=== PATIENT | male | born 1985 | race Caucasian/White ===

== ENCOUNTER 2017-03-23 17:22 | Emergency (ER) | payer OTHER ==
[2017-03-23 17:37] VITALS: RESP 18
[2017-03-23] MEDS ORDERED: SODIUM CHLORIDE 0.9% 1,000 ML IV STA ×2 (18:29)
[2017-03-23] MEDS ORDERED: ONDANSETRON 4 MG/2 ML VIAL IVP STA (18:29)
[2017-03-23] MEDS ORDERED: SODIUM CHLORIDE 0.9% 500 ML IV STA (18:29)
[2017-03-23] MEDS ORDERED: PANTOPRAZOLE 40 MG/10 ML VIAL IVP STA (18:30)
[2017-03-23] MEDS ORDERED: RX INFO: IV CONTRAST WAS GIVEN 1 EACH MISC MISCELLANE PRN (18:32)
--- NOTE | 2017-03-23 18:36 | ED ---
General Adult HPI - General Source: patient, RN notes reviewed Mode of arrival: ambulatory Limitations: no limitations <Camron Vail - Last Filed: 03/23/17 18:33> <Alen Godoy - Last Filed: 03/23/17 22:27> - General Chief complaint: Nausea/Vomiting/Diarrhea Stated complaint: weakness x 3 days, vomiting Time Seen by Provider: 03/23/17 18:20 - History of Present Illness Initial comments: Patient 31-year-old male significant past medical history for colitis, who presents emergency room today with a chief complaint of symptoms of increased nausea vomiting diarrhea over the last 3 days. He denies any signs of blood in the emesis or stool. Patient states that it difficult time keeping down any fluids. Patient states she's had symptoms similar to this on and off over the last 4 years. He states that he has lost approximately 90 pounds over the last 2 years. He states he did stop eating bread and he stopped drinking beer patient admits to some abdominal pain that comes and goes. Patient denies any other complaints or symptoms at this time. Patient denies any recent fever, chills, shortness of breath, chest pain, back pain, numbness or tingling, dysuria or hematuria, constipation, headaches or visual changes, or any other complaints. (Camron Vail) - Related Data Previous Rx's Medication Instructions Recorded chlordiazePOXIDE HCl [Librium] 25 mg PO QID #20 capsule 03/23/17 Allergies Allergy/AdvReac Type Severity Reaction Status Date / Time No Known Allergies Allergy Verified 03/23/17 18:29 Review of Systems ROS Other: All systems not noted in ROS Statement are negative. <Camron Vail - Last Filed: 03/23/17 18:33> ROS Other: All systems not noted in ROS Statement are negative. <Alen Godoy - Last Filed: 03/23/17 22:27> ROS Statement: Those systems with pertinent positive or pertinent negative responses have been documented in the HPI. Past Medical History Additional Past Medical History / Comment(s): colitis History of Any Multi-Drug Resistant Organisms: None Reported Past Surgical History: No Surgical Hx Reported Past Psychological History: No Psychological Hx Reported Smoking Status: Never smoker Past Alcohol Use History: Daily, Heavy Past Drug Use History: Marijuana <Camron Vail - Last Filed: 03/23/17 18:33> General Exam Limitations: no limitations <Camron Vail - Last Filed: 03/23/17 18:33> <Alen Godoy - Last Filed: 03/23/17 22:27> - General Exam Comments Initial Comments: General: The patient is awake and alert, in no distress, and does not appear acutely ill. Eye: Pupils are equal, round and reactive to light, extra-ocular movements are intact. No nystagmus. There is normal conjunctiva bilaterally. No signs of icterus. Ears, nose, mouth and throat: There are moist mucous membranes and no oral lesions. Neck: The neck is supple, there is no tenderness or JVD. Cardiovascular: There is a regular rate and rhythm. No murmur, rub or gallop is appreciated. Respiratory: Lungs are clear to auscultation, respirations are non-labored, breath sounds are equal. No wheezes, stridor, rales, or rhonchi. Gastrointestinal: Normal appearance abdomen. Normal bowel sounds. Soft on palpation. Mild tenderness epigastric. No rebound tenderness. No Guarding. No CVA tenderness. Musculoskeletal: Normal ROM, no tenderness. Strength 5/5. Sensation intact. Pulses equal bilaterally 2+. Neurological: A&O x 3. CN II-XII intact, There are no obvious motor or sensory deficits. Coordination appears grossly intact. Speech is normal. Skin: Skin is warm and dry and no rashes or lesions are noted. Psychiatric: Cooperative, appropriate mood & affect, normal judgment. (Camron Vail) Medical Decision Making <Camron Vail - Last Filed: 03/23/17 18:33> - Lab Data Result diagrams: 03/23/17 19:00 03/23/17 19:00 <Alen Godoy - Last Filed: 03/23/17 22:27> - Medical Decision Making Medical decision-making. The patient'slabs show white count of 7 hemoglobin 13 hematocrit 37. Potassium 3.7 BUN 5 creatinine 0.7 GFR greater than 60. Glucose 109. Total bilirubin 2.5 AST 390 ALT 80 alk phos 189. Hepatitis panel is negative. CT of the abdomen was done for evaluation of nausea vomiting. This was performed without oral or IV contrast. The radiologist's significant depressions including the liver is diffusely hypoattenuated measuring greater than 30 hospital units lower than the spleen most commonly related to underlying hepatic steatosis, which limits evaluating for underlying hepatic masses. No focal hepatic lesion is visualized. The gallbladder contains numerous calcified layering gallstones. Pancreas no significant abnormality is seen. Spleen spleen is enlarged measuring 14.8 cm in greatest sagittal dimension. Small spinal seen adjacent to the names. No free air visualized. No retroperitoneal lymphadenopathy. The osseous structures show no significant abnormality is seen. Scattered well-circumscribed sclerotic lesions are seen within the pelvis, likely related to benign bone islands. Bowelabnormality is seen. Impression #1 no radiographic evidence of colitis or bowel obstruction correlate with the patient's nausea and vomiting. 2 was hepatic steatosis. 3 splenomegaly without evidence of portal venous hypertension. 4 cholelithiasis. As read by I had a talk with the patient and his father. The patient is an alcoholic. He is afraid that if he stops drinking he may have a seizure. HEENT his father talking about going to a alcohol rehab program. The patient will be placed on Librium 25 mg 4 times a day for the next week. They live together so his father can help monitoring.we discussed hepatic C3 6. Elevated liver enzymes. Patient is not icteric. Does not have right quadrant pain. He'll be referred to his family physician for further evaluation. (Alen Godoy) - Lab Data Lab Results 03/23/17 03/23/17 03/23/17 Range/Units 19:00 19:00 19:00 WBC 7.0 (3.8-10.6) k/uL RBC 3.59 L (4.30-5.90) m/uL Hgb 13.5 (13.0-17.5) gm/dL Hct 37.3 L (39.0-53.0) % MCV 104.0 H (80.0-100.0) fL MCH 37.6 H (25.0-35.0) pg MCHC 36.2 (31.0-37.0) g/dL RDW 15.2 (11.5-15.5) % Plt Count 198 (150-450) k/uL Neutrophils % 76 % Lymphocytes % 13 % Monocytes % 9 % Eosinophils % 0 % Basophils % 1 % Neutrophils # 5.3 (1.3-7.7) k/uL Lymphocytes # 0.9 L (1.0-4.8) k/uL Monocytes # 0.6 (0-1.0) k/uL Eosinophils # 0.0 (0-0.7) k/uL Basophils # 0.0 (0-0.2) k/uL Hyperchromasia Slight Macrocytosis Moderate Sodium 139 (137-145) mmol/L Potassium 3.7 (3.5-5.1) mmol/L Chloride 95 L (98-107) mmol/L Carbon Dioxide 30 (22-30) mmol/L Anion Gap 14 mmol/L BUN 5 L (9-20) mg/dL Creatinine 0.70 (0.66-1.25) mg/dL Est GFR (MDRD) Af Amer >60 (>60 ml/min/1.73 sqM) Est GFR (MDRD) Non-Af >60 (>60 ml/min/1.73 sqM) Glucose 109 H (74-99) mg/dL Calcium 9.5 (8.4-10.2) mg/dL Total Bilirubin 2.5 H (0.2-1.3) mg/dL AST 390 H (17-59) U/L ALT 80 H (21-72) U/L Alkaline Phosphatase 189 H (38-126) U/L Total Protein 7.7 (6.3-8.2) g/dL Albumin 4.4 (3.5-5.0) g/dL Amylase 76 (30-110) U/L Lipase 146 (23-300) U/L Urine Color Urine Appearance (Clear) Urine pH (5.0-8.0) Ur Specific [place] (1.001-1.035) Urine Protein (Negative) Urine Glucose (UA) (Negative) Urine Ketones (Negative) Urine Blood (Negative) Urine Nitrite (Negative) Urine Bilirubin (Negative) Urine Urobilinogen (<2.0) mg/dL Ur Leukocyte Esterase (Negative) Urine RBC (0-5) /hpf Urine WBC (0-5) /hpf Cellular Casts (0) /lpf Hyaline Casts (0-2) /lpf Urine Mucus (None) /hpf Hepatitis A IgM Ab NEGATIVE Hep Bs Antigen Negative Hep B Core IgM Ab NEGATIVE Hep C IgG Ab Negative (Negative) 03/23/17 Range/Units 20:15 WBC (3.8-10.6) k/uL RBC (4.30-5.90) m/uL Hgb (13.0-17.5) gm/dL Hct (39.0-53.0) % MCV (80.0-100.0) fL MCH (25.0-35.0) pg MCHC (31.0-37.0) g/dL RDW (11.5-15.5) % Plt Count (150-450) k/uL Neutrophils % % Lymphocytes % % Monocytes % % Eosinophils % % Basophils % % Neutrophils # (1.3-7.7) k/uL Lymphocytes # (1.0-4.8) k/uL Monocytes # (0-1.0) k/uL Eosinophils # (0-0.7) k/uL Basophils # (0-0.2) k/uL Hyperchromasia Macrocytosis Sodium (137-145) mmol/L Potassium (3.5-5.1) mmol/L Chloride (98-107) mmol/L Carbon Dioxide (22-30) mmol/L Anion Gap mmol/L BUN (9-20) mg/dL Creatinine (0.66-1.25) mg/dL Est GFR (MDRD) Af Amer (>60 ml/min/1.73 sqM) Est GFR (MDRD) Non-Af (>60 ml/min/1.73 sqM) Glucose (74-99) mg/dL Calcium (8.4-10.2) mg/dL Total Bilirubin (0.2-1.3) mg/dL AST (17-59) U/L ALT (21-72) U/L Alkaline Phosphatase (38-126) U/L Total Protein (6.3-8.2) g/dL Albumin (3.5-5.0) g/dL Amylase (30-110) U/L Lipase (23-300) U/L Urine Color [place] Urine Appearance Clear (Clear) Urine pH 6.5 (5.0-8.0) Ur Specific [place] >1.050 H (1.001-1.035) Urine Protein 1+ H (Negative) Urine Glucose (UA) Negative (Negative) Urine Ketones 1+ H (Negative) Urine Blood Negative (Negative) Urine Nitrite Negative (Negative) Urine Bilirubin 1+ H (Negative) Urine Urobilinogen 8.0 (<2.0) mg/dL Ur Leukocyte Esterase Negative (Negative) Urine RBC 1 (0-5) /hpf Urine WBC 3 (0-5) /hpf Cellular Casts 1 (0) /lpf Hyaline Casts 22 H (0-2) /lpf Urine Mucus Occasional H (None) /hpf Hepatitis A IgM Ab Hep Bs Antigen Hep B Core IgM Ab Hep C IgG Ab (Negative) Disposition <Camron Vail - Last Filed: 03/23/17 18:33> Time of Disposition: 22:27 <Alen Godoy - Last Filed: 03/23/17 22:27> Clinical Impression: Alcohol abuse, Cholelithiasis NOS Disposition: HOME SELF-CARE Condition: Fair Instructions: Abuse of Alcohol (ED), Acute Nausea and Vomiting (ED), Alcohol Withdrawal (ED), Alcohol Dependence (ED) Additional Instructions: Take Librium 4 times daily for the next week. Follow-up with your family doctor. Follow-up with alcohol rehabilitation programs on the list. Prescriptions: chlordiazePOXIDE HCl [Librium] 25 mg PO QID #20 capsule Referrals: None,Stated [Primary Care Provider] - 1-2 days
[2017-03-23 19:19] LABS: Basophils % (A) 1 %; CH 38.9; CHCM 37.6; Eosinophils % (A) 0 %; HCT 37.3 % (39.0-53.0); HDW 3.06; HGB 13.5 gm/dL (13.0-17.5); Hyperchromasia Slight; Luc # (Auto) 0.12; Luc % (Auto) 2; Lymphocytes # (A) 0.9 k/uL (1.0-4.8); Lymphocytes % (A) 13 %; MCH 37.6 pg (25.0-35.0); MCHC 36.2 g/dL (31.0-37.0); Macrocytosis Moderate; Mean Platelet Volume 6.8; Monocytes # (A) 0.6 k/uL (0-1.0); Monocytes % (A) 9 %; Neutrophils # (A) 5.3 k/uL (1.3-7.7); Neutrophils % (A) 76 %; RBC 3.59 m/uL (4.30-5.90); RDW 15.2 % (11.5-15.5); WBC (Perox) 7.21
[2017-03-23 19:25] LABS: ALT 80 U/L (21-72); AST 390 U/L (17-59); Alkaline Phosphatase 189 U/L (38-126); Amylase 76 U/L (30-110); Anion Gap 14 mmol/L; Blood Urea Nitrogen 5 mg/dL (9-20); Calcium 9.5 mg/dL (8.4-10.2); Carbon Dioxide 30 mmol/L (22-30); Chloride 95 mmol/L (98-107); Glucose 109 mg/dL (74-99); Non-African American GFR(MDRD) >60 (>60 ml/min/1.73 sqM); Potassium 3.7 mmol/L (3.5-5.1); Sodium 139 mmol/L (137-145); Total Bilirubin 2.5 mg/dL (0.2-1.3); Total Protein 7.7 g/dL (6.3-8.2)
--- NOTE | 2017-03-23 20:09 | CT ---
EXAMINATION TYPE: CT abdomen pelvis w con DATE OF EXAM: 03/23/2017 COMPARISON: NONE HISTORY: History of colitis. Nausea and vomiting x 4 days. 90 lb weight loss over past year. CT DLP: 577.80 mGycm Automated exposure control for dose reduction was used. TECHNIQUE: Helical acquisition of images was performed from the lung bases through the pelvis. CONTRAST: Performed without Oral Contrast and with IV Contrast, patient injected with 100 mL of Omnipaque 300. FINDINGS: LUNG BASES: No significant abnormality is appreciated. LIVER/GB: The liver is diffusely hypoattenuated measuring greater than 30 Hounsfield units lower than the spleen most commonly related to underlying hepatic steatosis, which limits evaluation for underl jazmyne hepatic masses. No focal hepatic lesion is visualized. The gallbladder contains numerous calcifi ed layering gallstones. PANCREAS: No significant abnormality is seen. SPLEEN: The spleen is enlarged measuring 14.8 cm in greatest sagittal dimension. Small splenule is se en adjacent to the [place] spleen. ADRENALS: No significant abnormality is seen. KIDNEYS: No significant abnormality is seen. FREE AIR: No free air is visualized. RETROPERITONEAL ADENOPATHY: None visualized REPRODUCTIVE ORGANS: No significant abnormality is seen URINARY BLADDER: No significant abnormality is seen. PELVIC ADENOPATHY: None visualized. OSSEOUS STRUCTURES: No significant abnormality is seen. Scattered well-circumscribed sclerotic lesio ns are seen within the pelvis, likely related to benign bone islands. BOWEL: No significant abnormality is seen. OTHER: IMPRESSION: 1. NO RADIOGRAPHIC EVIDENCE OF COLITIS OR BOWEL OBSTRUCTION TO CORRELATE WITH THE PATIENT'S NAUSEA AN D VOMITING. 2. HEPATIC STEATOSIS. 3. SPLENOMEGALY WITHOUT EVIDENCE OF PORTAL VENOUS HYPERTENSION. 4. CHOLELITHIASIS.
[2017-03-23 20:33] LABS: Hepatitis B Surface Ag Index 0.06
[2017-03-23 20:34] LABS: Appearance,Urine Clear (Clear); Bilirubin,Urine 1+ (Negative); Glucose,Urine (UA) Negative (Negative); Ketones,Urine 1+ (Negative); PH, Urine 6.5 (5.0-8.0); Protein,Urine 1+ (Negative)
[2017-03-23 20:35] LABS: Leukocyte Esterase,Urine Negative (Negative); Mucus,Urine Occasional /hpf; Nitrite,Urine Negative (Negative); Particle Count 5884; RBC,Urine 1 /hpf (0-5); UA Billing (MACRO vs. MICRO) MICRO; WBC,Urine 3 /hpf (0-5)
[2017-03-23 20:38] LABS: Specific Gravity,Urine >1.050 (1.001-1.035)
[2017-03-23 20:39] LABS: Hepatitis B Core IgM Index 0.02
[2017-03-23 20:50] LABS: Hepatitis C Virus IgG Ab Negative (Negative); Hepatitis C Virus IgG Index 0.03
[2017-03-23] MEDS ORDERED: chlordiazePOXIDE 25 MG CAP PO STA (22:25)
[2017-03-23 22:47] VITALS: BP 138/78; PULSE 102; TEMP 97.1
== END 2017-03-23 22:45 | disposition home or self-care (01) ==
LOC: EC 17:22
DX: K80.20 Calculus of gallbladder without cholecystitis without obstruction (principal); F10.10 Alcohol abuse, uncomplicated; K76.0 Fatty (change of) liver, not elsewhere classified; R16.1 Splenomegaly, not elsewhere classified; R74.8 Abnormal levels of other serum enzymes; M89.8X8 Other specified disorders of bone, other site; R11.2 Nausea with vomiting, unspecified; R19.7 Diarrhea, unspecified
CPT/HCPCS: 36415; 80053; 80074; 82150; 83690; 85025; 81001; 74177; 99285; 96374; 96375; 96361 ×2; J2405; Q9967; C9113

== ENCOUNTER 2018-12-15 17:22 | Inpatient (IN) | payer OTHER ==
[2018-12-15] MEDS ORDERED: SODIUM CHLORIDE 0.9% 1,000 ML IV ONE (18:02)
--- NOTE | 2018-12-15 18:16 | ED ---
General Adult HPI - General Source: patient Mode of arrival: ambulatory Limitations: no limitations <Eugenia Marina - Last Filed: 12/15/18 20:35> <Navin Lowry - Last Filed: 12/15/18 20:48> - General Chief complaint: Recheck/Abnormal Lab/Rx Stated complaint: palpitations/yellowish skin and face Time Seen by Provider: 12/15/18 17:27 - History of Present Illness Initial comments: 33-year-old male patient presents to the emergency department today for evaluation of jaundice, lower extremity edema, and the palpitations. Patient states that he has had intermittent yellowing of the skin over the last several weeks. States that it seemed to be worsening this time and he started to have what felt like racing heart and palpitations a presented here for further evaluation. Patient states he is also having increased swelling to the lower extremities, states the swelling has extended up into his knees and thighs so he became more concerned. He denies any shortness of breath with this. States that he does feel that he is having some abdominal swelling as well. Patient denies any significant abdominal pain, nausea, or vomiting. Denies any constipation or diarrhea. Denies any change to the color of his stool. Patient does admit to drinking 1-1.5 pints of liquor per day. Denies any street drug use. Denies any history of IVDA. Patient denies any recent rash, chest pain, back pain, numbness, tingling, dizziness, weakness, hematuria, dysuria, urinary urgency, urinary frequency, headache, visual changes, or any other complaints. (Eugenia Marina) - Related Data Home Medications Medication Instructions Recorded Confirmed Cyanocobalamin [Vitamin B-12] 500 mcg PO HS 12/15/18 12/15/18 Allergies Allergy/AdvReac Type Severity Reaction Status Date / Time No Known Allergies Allergy Verified 12/15/18 20:45 Review of Systems ROS Other: All systems not noted in ROS Statement are negative. <Eugenia Marina - Last Filed: 12/15/18 20:35> ROS Other: All systems not noted in ROS Statement are negative. <Navin Lowry - Last Filed: 12/15/18 20:48> ROS Statement: Those systems with pertinent positive or pertinent negative responses have been documented in the HPI. Past Medical History Additional Past Medical History / Comment(s): colitis History of Any Multi-Drug Resistant Organisms: None Reported Past Surgical History: No Surgical Hx Reported Past Psychological History: No Psychological Hx Reported Smoking Status: Never smoker Past Alcohol Use History: Daily, Heavy Past Drug Use History: Marijuana <Eugenia Marina - Last Filed: 12/15/18 20:35> General Exam Limitations: no limitations General appearance: alert, in no apparent distress, other (Physical well- developed, well-nourished adult male patient in no acute distress. Vital signs upon presentation are temperature 98.1F, pulse 109, respirations 18, blood pressure 149/85, pulse ox 100% on room air.) Eye exam: Present: normal appearance, PERRL, EOMI, scleral icterus. Absent: conjunctival injection, periorbital swelling ENT exam: Present: normal exam, normal oropharynx, mucous membranes moist Neck exam: Present: normal inspection. Absent: tenderness, meningismus, lymphadenopathy Respiratory exam: Present: normal lung sounds bilaterally. Absent: respiratory distress, wheezes, rales, rhonchi, stridor Cardiovascular Exam: Present: normal rhythm, tachycardia, normal heart sounds. Absent: systolic murmur, diastolic murmur, rubs, gallop, clicks GI/Abdominal exam: Present: soft, normal bowel sounds. Absent: distended, tenderness, guarding, rebound, rigid Neurological exam: Present: alert, oriented X3, CN II-XII intact Psychiatric exam: Present: normal affect, normal mood Skin exam: Present: warm, dry, intact, other (Jaundice). 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 I do agree with the assessment and plan. The case was discussed with Dr. avila be the admitting physician patient does demonstrate jaundice mild pancreatitis history of alcoholism. (Navin Lowry ) EKG Findings - EKG Comments: EKG Findings:: EKG obtained at 1737 shows sinus tachycardia with a ventricular rate of 109, HI interval 140, QRS duration 82, QT 364, QTC 490. No evidence of ST elevation or depression. <Eugenia Marina - Last Filed: 12/15/18 20:35> Medical Decision Making - Lab Data Result diagrams: 12/15/18 17:45 12/15/18 17:45 <Eugenia Marina - Last Filed: 12/15/18 20:35> - Lab Data Result diagrams: 12/15/18 17:45 12/15/18 17:45 <Navin Lowry - Last Filed: 12/15/18 20:48> - Medical Decision Making 33-year-old male patient who admits to drinking 1/2 pints of liquor daily presents to the emergency department today for evaluation of jaundice and lower extremity edema. He is also reporting palpitations. Physical examination did reveal jaundice and scleral icterus. Labs reviewed and did reveal hemoglobin 11.9, PT 17.4, INR 1.8, sodium 132, chloride 94, total bilirubin was 11, AST 160 , alk phos 227, ammonia 39, lipase 541, TSH 7.090, free T4 2 0.36. Patient abdomen is soft and nontender. Does seem distended. He'll be admitted to the hospital for further GI evaluation. We will start IV hydration for elevated lipase. We'll add CIWA and Ativan for possible alcohol withdrawal. (Eugenia Marina) - Lab Data Lab Results 12/15/18 12/15/18 12/15/18 Range/Units 17:45 17:45 17:45 WBC 10.3 (3.8-10.6) k/uL RBC 3.31 L (4.30-5.90) m/uL Hgb 11.9 L (13.0-17.5) gm/dL Hct 36.4 L (39.0-53.0) % MCV 110.0 H (80.0-100.0) fL MCH 36.1 H (25.0-35.0) pg MCHC 32.8 (31.0-37.0) g/dL RDW 13.5 (11.5-15.5) % Plt Count 120 L (150-450) k/uL Neutrophils % 75 % Lymphocytes % 12 % Monocytes % 10 % Eosinophils % 1 % Basophils % 0 % Neutrophils # 7.7 (1.3-7.7) k/uL Lymphocytes # 1.2 (1.0-4.8) k/uL Monocytes # 1.0 (0-1.0) k/uL Eosinophils # 0.1 (0-0.7) k/uL Basophils # 0.0 (0-0.2) k/uL Manual Slide Review Performed Hypochromasia (manual) Present Anisocytosis (manual) Present Macrocytosis Marked Target Cells Present PT 17.4 H (9.0-12.0) sec INR 1.8 H (<1.2) APTT 37.4 H (22.0-30.0) sec Sodium 132 L (137-145) mmol/L Potassium 3.7 (3.5-5.1) mmol/L Chloride 94 L (98-107) mmol/L Carbon Dioxide 26 (22-30) mmol/L Anion Gap 12 mmol/L BUN 6 L (9-20) mg/dL Creatinine 0.54 L (0.66-1.25) mg/dL Est GFR (CKD-EPI)AfAm >90 (>60 ml/min/1.73 sqM) Est GFR (CKD-EPI)NonAf >90 (>60 ml/min/1.73 sqM) Glucose 121 H (74-99) mg/dL Calcium 8.4 (8.4-10.2) mg/dL Magnesium 1.6 (1.6-2.3) mg/dL Total Bilirubin 11.0 H (0.2-1.3) mg/dL AST 160 H (17-59) U/L ALT 46 (21-72) U/L Alkaline Phosphatase 227 H (38-126) U/L Ammonia (<30) umol/L Total Protein 7.6 (6.3-8.2) g/dL Albumin 3.3 L (3.5-5.0) g/dL Amylase 79 (30-110) U/L Lipase 541 H (23-300) U/L TSH 7.090 H (0.465-4.680) mIU/L Free T4 2.36 H (0.78-2.19) ng/dL Urine Color Urine Appearance (Clear) Urine pH (5.0-8.0) Ur Specific [place] (1.001-1.035) Urine Protein (Negative) Urine Glucose (UA) (Negative) Urine Ketones (Negative) Urine Blood (Negative) Urine Nitrite (Negative) Urine Bilirubin (Negative) Urine Urobilinogen (<2.0) mg/dL Ur Leukocyte Esterase (Negative) Urine RBC (0-5) /hpf Urine WBC (0-5) /hpf Urine Mucus (None) /hpf 12/15/18 12/15/18 Range/Units 17:45 19:45 WBC (3.8-10.6) k/uL RBC (4.30-5.90) m/uL Hgb (13.0-17.5) gm/dL Hct (39.0-53.0) % MCV (80.0-100.0) fL MCH (25.0-35.0) pg MCHC (31.0-37.0) g/dL RDW (11.5-15.5) % Plt Count (150-450) k/uL Neutrophils % % Lymphocytes % % Monocytes % % Eosinophils % % Basophils % % Neutrophils # (1.3-7.7) k/uL Lymphocytes # (1.0-4.8) k/uL Monocytes # (0-1.0) k/uL Eosinophils # (0-0.7) k/uL Basophils # (0-0.2) k/uL Manual Slide Review Hypochromasia (manual) Anisocytosis (manual) Macrocytosis Target Cells PT (9.0-12.0) sec INR (<1.2) APTT (22.0-30.0) sec Sodium (137-145) mmol/L Potassium (3.5-5.1) mmol/L Chloride (98-107) mmol/L Carbon Dioxide (22-30) mmol/L Anion Gap mmol/L BUN (9-20) mg/dL Creatinine (0.66-1.25) mg/dL Est GFR (CKD-EPI)AfAm (>60 ml/min/1.73 sqM) Est GFR (CKD-EPI)NonAf (>60 ml/min/1.73 sqM) Glucose (74-99) mg/dL Calcium (8.4-10.2) mg/dL Magnesium (1.6-2.3) mg/dL Total Bilirubin (0.2-1.3) mg/dL AST (17-59) U/L ALT (21-72) U/L Alkaline Phosphatase (38-126) U/L Ammonia 39 H (<30) umol/L Total Protein (6.3-8.2) g/dL Albumin (3.5-5.0) g/dL Amylase (30-110) U/L Lipase (23-300) U/L TSH (0.465-4.680) mIU/L Free T4 (0.78-2.19) ng/dL Urine Color [place] Urine Appearance Cloudy (Clear) Urine pH 6.0 (5.0-8.0) Ur Specific [place] 1.018 (1.001-1.035) Urine Protein Trace H (Negative) Urine Glucose (UA) Negative (Negative) Urine Ketones Negative (Negative) Urine Blood Negative (Negative) Urine Nitrite Negative (Negative) Urine Bilirubin 2+ H (Negative) Urine Urobilinogen 12.0 (<2.0) mg/dL Ur Leukocyte Esterase Negative (Negative) Urine RBC <1 (0-5) /hpf Urine WBC 1 (0-5) /hpf Urine Mucus Many H (None) /hpf Disposition Decision to Admit Reason: Admit from [facility] Decision Date: 12/15/18 Decision Time: 20:38 <Eugenia Marina - Last Filed: 12/15/18 20:35> <Navin Lowry - Last Filed: 12/15/18 20:48> Clinical Impression: Hyperbilirubinemia, Alcoholic liver disease Disposition: ADMITTED IP TO THIS [facility] Condition: Serious Referrals: None,Stated [Primary Care Provider] - 1-2 days
[2018-12-15 18:30] LABS: Basophils % (A) 0 %; Eosinophils # (A) 0.1 k/uL (0-0.7); Eosinophils % (A) 1 %; HCT 36.4 % (39.0-53.0); HGB 11.9 gm/dL (13.0-17.5); Lymphocytes # (A) 1.2 k/uL (1.0-4.8); Lymphocytes % (A) 12 %; MCH 36.1 pg (25.0-35.0); MCHC 32.8 g/dL (31.0-37.0); Macrocytosis Marked; Mean Platelet Volume 6.7; Monocytes % (A) 10 %; Neutrophils # (A) 7.7 k/uL (1.3-7.7); Neutrophils % (A) 75 %; Platelet Count 120 k/uL (150-450); RBC 3.31 m/uL (4.30-5.90); RDW 13.5 % (11.5-15.5); WBC 10.3 k/uL (3.8-10.6)
[2018-12-15 18:45] LABS: ALT 46 U/L (21-72); AST 160 U/L (17-59); Albumin 3.3 g/dL (3.5-5.0); Alkaline Phosphatase 227 U/L (38-126); Amylase 79 U/L (30-110); Anion Gap 12 mmol/L; Blood Urea Nitrogen 6 mg/dL (9-20); Calcium 8.4 mg/dL (8.4-10.2); Carbon Dioxide 26 mmol/L (22-30); Chloride 94 mmol/L (98-107); Glucose 121 mg/dL (74-99); Lipase 541 U/L (23-300); Magnesium 1.6 mg/dL (1.6-2.3); Potassium 3.7 mmol/L (3.5-5.1); Sodium 132 mmol/L (137-145); Total Protein 7.6 g/dL (6.3-8.2)
[2018-12-15 18:52] LABS: INR 1.8 (<1.2); Partial Thromboplastin Time 37.4 sec (22.0-30.0); Prothrombin Time 17.4 sec (9.0-12.0)
[2018-12-15 19:07] LABS: Anisocytosis (M) Present; Hypochromasia (M) Present; Target Cells Present
[2018-12-15 19:41] LABS: T4, Free (Free Thyroxine) 2.36 ng/dL (0.78-2.19)
[2018-12-15 19:52] LABS: Appearance,Urine Cloudy (Clear); Bilirubin,Urine 2+ (Negative); Blood,Urine Negative (Negative); Color,Urine Dark Brown; Glucose,Urine (UA) Negative (Negative); Ketones,Urine Negative (Negative); Leukocyte Esterase,Urine Negative (Negative); Mucus,Urine Many /hpf; Nitrite,Urine Negative (Negative); Protein,Urine Trace (Negative); RBC,Urine <1 /hpf (0-5); Specific Gravity,Urine 1.018 (1.001-1.035); WBC,Urine 1 /hpf (0-5)
[2018-12-15] MEDS ORDERED: NALOXONE 0.4 MG/ML 1 ML VIAL IV PRN (20:31)
[2018-12-15] MEDS ORDERED: LORazepam 2 MG/ML INJ IV PRN ×3 (20:34)
[2018-12-15] MEDS ORDERED: SODIUM CHLORIDE 0.9% 1,000 ML with MVI, ADULT NO.4 WITH VIT K 10 ML, THIAMINE 100 MG, F... IV ONE ×4 (21:00)
[2018-12-15] MEDS: SODIUM CHLORIDE 0.9% 1,000 ML IV SCH (21:23)
[2018-12-16 07:02] LABS: Basophils % (A) 0 %; Eosinophils # (A) 0.1 k/uL (0-0.7); Eosinophils % (A) 2 %; HGB 10.3 gm/dL (13.0-17.5); Lymphocytes % (A) 15 %; MCH 36.9 pg (25.0-35.0); MCHC 33.3 g/dL (31.0-37.0); Macrocytosis Marked; Mean Platelet Volume 7.2; Monocytes # (A) 0.7 k/uL (0-1.0); Monocytes % (A) 11 %; Neutrophils # (A) 4.6 k/uL (1.3-7.7); Neutrophils % (A) 68 %; Platelet Count 105 k/uL (150-450); RDW 13.8 % (11.5-15.5); WBC 6.7 k/uL (3.8-10.6)
[2018-12-16 07:08] LABS: MCV 110.5 fL (80.0-100.0)
[2018-12-16 07:19] LABS: ALT 37 U/L (21-72); AST 119 U/L (17-59); Albumin 2.6 g/dL (3.5-5.0); Alkaline Phosphatase 202 U/L (38-126); Anion Gap 10 mmol/L; Blood Urea Nitrogen 7 mg/dL (9-20); Calcium 7.6 mg/dL (8.4-10.2); Carbon Dioxide 25 mmol/L (22-30); Chloride 97 mmol/L (98-107); Glucose 90 mg/dL (74-99); Potassium 3.5 mmol/L (3.5-5.1); Sodium 132 mmol/L (137-145); Total Bilirubin 8.9 mg/dL (0.2-1.3); Total Protein 6.2 g/dL (6.3-8.2)
[2018-12-16] MEDS: FUROSEMIDE 10 MG/ML 2 ML VIAL IV SCH ×2 (11:46→20:31)
[2018-12-16] MEDS: THIAMINE 100 MG TAB PO SCH ×2 (11:46→16:22)
[2018-12-16] MEDS: SPIRONOLACTONE 25 MG TAB PO SCH (11:46)
[2018-12-16] MEDS: SODIUM CHLORIDE 0.9% 1,000 ML IV SCH ×2 (11:47→16:22)
--- NOTE | 2018-12-16 17:27 | P.CONS ---
History of Present Illness - Reason for Consult Consult date: 12/16/18 Cirrhosis Requesting physician: Joe Brar - Chief Complaint Lower extremity swelling - History of Present Illness 33-year-old male patient with an extensive history of alcohol abuse who presented to the hospital with multiple complaints. The patient reports swelling of his lower extremities which is present for approximately 10 days, intermittent jaundice which she has noticed over the past 3 weeks as well as palpitations. The patient reports that the symptoms are new and he has associated abdominal distention and swelling. He has previously been told of elevation in his liver enzymes, approximately 2 years ago when he was hospitalized. He denies any previous episodes requiring hospitalization with complaints similar to the ones he has now. He denies any change in bowel habits , blood per rectum or melena. He has a significant history of alcohol abuse. She reports that he has been drinking 1-1-1/2 pints of liquor daily for the past few years but has been drinking regularly for approximately 13 years. On presentation to the hospital the patient was found to have an INR of 1.8, platelet count of 105,000, hemoglobin 10.3, total bilirubin 8.9, alkaline phosphatase 202, AST 119 and ALT 37. He denies any prior episodes of encephalopathy, variceal bleeding or abdominal distention requiring paracentesis. Review of Systems REVIEW OF SYSTEMS: CONSTITUTIONAL: Denies any fevers, chills, weight change or fatigue. CARDIOVASCULAR: Denies any chest pain, high or low blood pressures, but did report palpitations on presentation. RESPIRATORY: Denies any shortness of breath, hemoptysis or cough. GENITOURINARY: No dysuria or hematuria. MUSCULOSKELETAL: No weakness reported. SKIN: Denies any new rashes or lesions, or pallor but has noticed jaundice. PSYCHIATRIC: Denies any depression or anxiety. NEUROLOGY: Denies headache, denies any new focal deficits. EARS/NOSE/THROAT: No recent hearing change, congestion, nasal discharge or sore throat. EYES: No pain in eyes, discharge or change in vision. GASTROINTESTINAL: As per HPI. Past Medical History Additional Past Medical History / Comment(s): colitis History of Any Multi-Drug Resistant Organisms: None Reported Past Surgical History: No Surgical Hx Reported Past Psychological History: No Psychological Hx Reported Smoking Status: Never smoker Past Alcohol Use History: Daily, Heavy Past Drug Use History: Marijuana Additional History: Family history: Reviewed with the patient and noncontributory to current medical presentation - Past Family History Father History Unknown: Yes Mother History Unknown: Yes Medications and Allergies Home Medications Medication Instructions Recorded Confirmed Type Cyanocobalamin [Vitamin B-12] 500 mcg PO HS 12/15/18 12/15/18 History Allergies Allergy/AdvReac Type Severity Reaction Status Date / Time No Known Allergies Allergy Verified 12/15/18 20:45 Physical Exam Vitals: Vital Signs Temp Pulse Pulse Resp BP BP Pulse Ox 12/16/18 16:00 97.8 F 106 H 18 113/78 95 12/16/18 07:14 97.8 F 106 H 18 115/68 94 L 12/15/18 23:51 98.4 F 107 H 16 120/66 95 12/15/18 22:00 111 H 12/15/18 21:59 98.2 F 111 H 18 130/80 99 12/15/18 21:23 88 16 135/82 100 12/15/18 19:00 101 H 20 134/79 97 12/15/18 18:30 101 H 18 142/81 97 12/15/18 18:00 107 H 18 145/84 98 12/15/18 17:23 98.1 F 109 H 18 149/85 100 Intake and Output 12/16/18 12/16/18 12/16/18 06:59 14:59 22:59 Intake Total 1000 Balance 1000 Intake: Intake, IV Titration 1000 Amount Sodium Chloride 0.9% 1, 1000 000 ml @ 100 mls/hr IV . Q10H [facility] Rx#:[id number] Other: # Voids 6 On physical examination, patient appears comfortable in no apparent distress. HEAD: Normocephalic, atraumatic. EYES: Scleral icterus is noted. No conjunctival injection. MOUTH: No lesions, tongue midline. NECK: Trachea midline, no gross abnormalities. CHEST: Clear to auscultation with no wheezing or rhonchi appreciated. HEART: Regular rate and rhythm. ABDOMEN: Soft, distended with positive fluid wave. Bowel sounds are positive. No organomegaly. No guarding or rigidity. EXTREMITIES: Bilateral 2+ pitting edema of the lower extremities. SKIN: No rashes, jaundice. NEUROLOGIC: Alert and oriented x3. No asterixis noted. No focal deficits. Results CBC & Chem 7: 12/16/18 06:22 02/24/19 06:22 Labs: Abnormal Lab Results - Last 24 Hours (Table) 12/15/18 12/15/18 12/15/18 Range/Units 17:45 17:45 17:45 RBC 3.31 L (4.30-5.90) m/uL Hgb 11.9 L (13.0-17.5) gm/dL Hct 36.4 L (39.0-53.0) % MCV 110.0 H (80.0-100.0) fL MCH 36.1 H (25.0-35.0) pg Plt Count 120 L (150-450) k/uL PT 17.4 H (9.0-12.0) sec INR 1.8 H (<1.2) APTT 37.4 H (22.0-30.0) sec Sodium 132 L (137-145) mmol/L Chloride 94 L (98-107) mmol/L BUN 6 L (9-20) mg/dL Creatinine 0.54 L (0.66-1.25) mg/dL Glucose 121 H (74-99) mg/dL Calcium (8.4-10.2) mg/dL Total Bilirubin 11.0 H (0.2-1.3) mg/dL AST 160 H (17-59) U/L Alkaline Phosphatase 227 H (38-126) U/L Ammonia (<30) umol/L Total Protein (6.3-8.2) g/dL Albumin 3.3 L (3.5-5.0) g/dL Lipase 541 H (23-300) U/L TSH 7.090 H (0.465-4.680) mIU/L Free T4 2.36 H (0.78-2.19) ng/dL Urine Protein (Negative) Urine Bilirubin (Negative) Urine Mucus (None) /hpf 12/15/18 12/15/18 12/16/18 Range/Units 17:45 19:45 06:22 RBC 2.80 L (4.30-5.90) m/uL Hgb 10.3 L (13.0-17.5) gm/dL Hct 31.0 L (39.0-53.0) % MCV 110.5 H (80.0-100.0) fL MCH 36.9 H (25.0-35.0) pg Plt Count 105 L (150-450) k/uL PT (9.0-12.0) sec INR (<1.2) APTT (22.0-30.0) sec Sodium (137-145) mmol/L Chloride (98-107) mmol/L BUN (9-20) mg/dL Creatinine (0.66-1.25) mg/dL Glucose (74-99) mg/dL Calcium (8.4-10.2) mg/dL Total Bilirubin (0.2-1.3) mg/dL AST (17-59) U/L Alkaline Phosphatase (38-126) U/L Ammonia 39 H (<30) umol/L Total Protein (6.3-8.2) g/dL Albumin (3.5-5.0) g/dL Lipase (23-300) U/L TSH (0.465-4.680) mIU/L Free T4 (0.78-2.19) ng/dL Urine Protein Trace H (Negative) Urine Bilirubin 2+ H (Negative) Urine Mucus Many H (None) /hpf 12/16/18 Range/Units 06:22 RBC (4.30-5.90) m/uL Hgb (13.0-17.5) gm/dL Hct (39.0-53.0) % MCV (80.0-100.0) fL MCH (25.0-35.0) pg Plt Count (150-450) k/uL PT (9.0-12.0) sec INR (<1.2) APTT (22.0-30.0) sec Sodium 132 L (137-145) mmol/L Chloride 97 L (98-107) mmol/L BUN 7 L (9-20) mg/dL Creatinine 0.52 L (0.66-1.25) mg/dL Glucose (74-99) mg/dL Calcium 7.6 L (8.4-10.2) mg/dL Total Bilirubin 8.9 H (0.2-1.3) mg/dL AST 119 H (17-59) U/L Alkaline Phosphatase 202 H (38-126) U/L Ammonia (<30) umol/L Total Protein 6.2 L (6.3-8.2) g/dL Albumin 2.6 L (3.5-5.0) g/dL Lipase (23-300) U/L TSH (0.465-4.680) mIU/L Free T4 (0.78-2.19) ng/dL Urine Protein (Negative) Urine Bilirubin (Negative) Urine Mucus (None) /hpf Assessment and Plan (1) Alcoholic liver disease Narrative/Plan: 33-year-old male with a 13 year history of alcohol abuse who presents with complaints of lower extremity edema, abdominal distention and jaundice. Serologically appears patient is cirrhotic, however no tissue diagnosis has ever been made. Full serology will be ordered to rule out any underlying pathology that could have contributed to liver disease. Extensive discussion with the patient on the need for alcohol abstinence. Current Visit: Yes Status: Acute Code(s): K70.9 - ALCOHOLIC LIVER DISEASE, UNSPECIFIED SNOMED Code(s): 90052016 (2) Hyperbilirubinemia Current Visit: Yes Status: Acute Code(s): E80.6 - OTHER DISORDERS OF BILIRUBIN METABOLISM SNOMED Code(s): 50774821 Plan: Supportive care Diet switched to low-sodium Monitor liver enzymes Full liver serologies ordered Lasix and Aldactone initiated Ultrasound paracentesis with fluid studies ordered Ultrasound and AFP for HCC screening ordered Extensive discussion with the patient on the need for alcohol abstinence Extensive discussion with the patient on liver disease and signs and symptoms of decompensated cirrhosis Monitor for alcohol withdrawal Thank you for allowing us to participate in the care of the patient we will continue to follow
[2018-12-16] MEDS ORDERED: IBUPROFEN 600 MG TAB PO STA (20:54)
--- NOTE | 2018-12-16 22:30 | P.HPIM ---
History of Present Illness H&P Date: 12/16/18 Chief Complaint: Leg swelling and abdominal distention Patient is a 33-year-old male with a known history of severe alcohol abuse, marijuana use, history of colitis came to ER with complaints of bilateral lower swelling and yellowish discoloration of skin. patient was also having palpitations on admission. Patient says that is been having worsening leg swelling and increased abdominal girth for the past 2 weeks. Otherwise denied any shortness of breath. No chest pain. Denied abdominal pain. Nausea vomiting. No hematemesis or melena. Denied any diarrhea. Patient has been drinking 1-1/2 pints of liquor everyday. Otherwise denied any headache. No numbness or tingling or dizziness or lightheadedness. No dysuria or hematuria. No blurry vision. Patient says that he was told that his liver enzymes were elevated previously. Patient has been drinking since age 20. Patient was found have elevated alkaline phosphatase 102, AST 160 and ALT 46 on admission. INR is 1.8, platelets 105 and hemoglobin 10.3. Total bili was 11.0 on admission. Ammonia 39, lipase 547 TSH 7.09 and free T4 2.36, heart rate around 100. EKG showed sinus tachycardia Review of Systems Constitutional: Patient denies any fever or chills . No generalized weakness or weight loss. Abdomen: Patient denied nausea vomiting and diarrhea and abdominal pain. Patient does have leg swelling and increased abdominal girth. Cardiovascular: Patient denies any chest pain or short of breath patient does have palpitations. Respiratory: patient denied any cough is from production. No shortness of breath Neurologic: Patient denied any numbness or tingling headache. Musculoskeletal: Patient denies any complaints of joint swelling or deformity. Skin: Negative Psychiatric: Negative Endocrine: No heat or cold intolerance. No recent weight gain. Genitourinary: No dysuria or hematuria. All other 14 point ROS negative except the above Past Medical History Additional Past Medical History / Comment(s): colitis History of Any Multi-Drug Resistant Organisms: None Reported Past Surgical History: No Surgical Hx Reported Past Psychological History: No Psychological Hx Reported Smoking Status: Never smoker Past Alcohol Use History: Daily, Heavy Past Drug Use History: Marijuana - Past Family History Father History Unknown: Yes Mother History Unknown: Yes Medications and Allergies Home Medications Medication Instructions Recorded Confirmed Type Cyanocobalamin [Vitamin B-12] 500 mcg PO HS 12/15/18 12/15/18 History Allergies Allergy/AdvReac Type Severity Reaction Status Date / Time No Known Allergies Allergy Verified 12/15/18 20:45 Physical Exam Vitals: Vital Signs Temp Pulse Pulse Resp BP BP Pulse Ox 12/16/18 07:14 97.8 F 106 H 18 115/68 94 L 12/15/18 23:51 98.4 F 107 H 16 120/66 95 12/15/18 22:00 111 H 12/15/18 21:59 98.2 F 111 H 18 130/80 99 12/15/18 21:23 88 16 135/82 100 12/15/18 19:00 101 H 20 134/79 97 12/15/18 18:30 101 H 18 142/81 97 12/15/18 18:00 107 H 18 145/84 98 12/15/18 17:23 98.1 F 109 H 18 149/85 100 Intake and Output 12/15/18 12/16/18 12/16/18 22:59 06:59 14:59 Intake Total 480 1000 Balance 480 1000 Intake: Intake, IV Titration 1000 Amount Sodium Chloride 0.9% 1, 1000 000 ml @ 100 mls/hr IV . Q10H [facility] Rx#:[id number] Oral 480 Other: # Voids 6 Weight 95.254 kg PHYSICAL EXAMINATION: Patient is lying in the bed comfortably, no acute distress, awake alert and oriented.. HEENT: Normocephalic. Neck is supple. Pupils reactive. Icterus positive. Nostrils clear. Oral cavity is moist. Ears reveal no drainage. Neck reveals no JVD, carotid bruits, or thyromegaly. CHEST EXAMINATION: Trachea is central. Symmetrical expansion. Lung ferrer clear to auscultation and percussion. CARDIAC: Normal S1, S2 with no gallops. No murmurs . Tachycardia ABDOMEN: Soft. Distended. Bowel sounds normal. No organomegaly. No abdominal bruits. Extremities: 3+ edema. No clubbing or cyanosis Neurologically awake, alert, oriented x3 with well-coordinated movements. No focal deficits noted Skin: No rash or skin lesions. Yellowish discoloration Psychiatric: Coperative. Nonsuicidal Musculoskeletal: No joint swelling or deformity. Normal range of motion. Results CBC & Chem 7: 12/16/18 06:22 02/24/19 06:22 Labs: Abnormal Lab Results - Last 24 Hours (Table) 12/15/18 12/15/18 12/15/18 Range/Units 17:45 17:45 17:45 RBC 3.31 L (4.30-5.90) m/uL Hgb 11.9 L (13.0-17.5) gm/dL Hct 36.4 L (39.0-53.0) % MCV 110.0 H (80.0-100.0) fL MCH 36.1 H (25.0-35.0) pg Plt Count 120 L (150-450) k/uL PT 17.4 H (9.0-12.0) sec INR 1.8 H (<1.2) APTT 37.4 H (22.0-30.0) sec Sodium 132 L (137-145) mmol/L Chloride 94 L (98-107) mmol/L BUN 6 L (9-20) mg/dL Creatinine 0.54 L (0.66-1.25) mg/dL Glucose 121 H (74-99) mg/dL Calcium (8.4-10.2) mg/dL Total Bilirubin 11.0 H (0.2-1.3) mg/dL AST 160 H (17-59) U/L Alkaline Phosphatase 227 H (38-126) U/L Ammonia (<30) umol/L Total Protein (6.3-8.2) g/dL Albumin 3.3 L (3.5-5.0) g/dL Lipase 541 H (23-300) U/L TSH 7.090 H (0.465-4.680) mIU/L Free T4 2.36 H (0.78-2.19) ng/dL Urine Protein (Negative) Urine Bilirubin (Negative) Urine Mucus (None) /hpf 12/15/18 12/15/18 12/16/18 Range/Units 17:45 19:45 06:22 RBC 2.80 L (4.30-5.90) m/uL Hgb 10.3 L (13.0-17.5) gm/dL Hct 31.0 L (39.0-53.0) % MCV 110.5 H (80.0-100.0) fL MCH 36.9 H (25.0-35.0) pg Plt Count 105 L (150-450) k/uL PT (9.0-12.0) sec INR (<1.2) APTT (22.0-30.0) sec Sodium (137-145) mmol/L Chloride (98-107) mmol/L BUN (9-20) mg/dL Creatinine (0.66-1.25) mg/dL Glucose (74-99) mg/dL Calcium (8.4-10.2) mg/dL Total Bilirubin (0.2-1.3) mg/dL AST (17-59) U/L Alkaline Phosphatase (38-126) U/L Ammonia 39 H (<30) umol/L Total Protein (6.3-8.2) g/dL Albumin (3.5-5.0) g/dL Lipase (23-300) U/L TSH (0.465-4.680) mIU/L Free T4 (0.78-2.19) ng/dL Urine Protein Trace H (Negative) Urine Bilirubin 2+ H (Negative) Urine Mucus Many H (None) /hpf 12/16/18 Range/Units 06:22 RBC (4.30-5.90) m/uL Hgb (13.0-17.5) gm/dL Hct (39.0-53.0) % MCV (80.0-100.0) fL MCH (25.0-35.0) pg Plt Count (150-450) k/uL PT (9.0-12.0) sec INR (<1.2) APTT (22.0-30.0) sec Sodium 132 L (137-145) mmol/L Chloride 97 L (98-107) mmol/L BUN 7 L (9-20) mg/dL Creatinine 0.52 L (0.66-1.25) mg/dL Glucose (74-99) mg/dL Calcium 7.6 L (8.4-10.2) mg/dL Total Bilirubin 8.9 H (0.2-1.3) mg/dL AST 119 H (17-59) U/L Alkaline Phosphatase 202 H (38-126) U/L Ammonia (<30) umol/L Total Protein 6.2 L (6.3-8.2) g/dL Albumin 2.6 L (3.5-5.0) g/dL Lipase (23-300) U/L TSH (0.465-4.680) mIU/L Free T4 (0.78-2.19) ng/dL Urine Protein (Negative) Urine Bilirubin (Negative) Urine Mucus (None) /hpf Thrombosis Risk Factor Assmnt - DVT/VTE Prophylaxis DVT/VTE Prophylaxis: Pharmacologic Prophylaxis ordered Assessment and Plan Assessment: Hyperbilirubinemia and elevated liver enzymes likely secondary to alcoholic liver disease Alcoholic liver disease with possible underlying cirrhosis Abdominal distention possible ascites Bilateral lower extremities edema Severe alcohol abuse 1-1/2 pint a day Coagulopathy secondary to liver disease. INR 1.8 Elevated TSH and free T4 levels with palpitations. Hypervolemic hyponatremia Mild hepatic encephalopathy with ammonia level 39 DVT prophylaxis. Patient is already auto antibiotic related. Plan: Patient was given IV hydration. Continue with thiamine and multivitamins and alcohol withdrawal monitoring. Patient was seen by GI and full serological workup for liver cirrhosis was ordered. Patient was started on IV Lasix and spironolactone. Ultrasound abdominal was ordered for ascites and paracentesis if needed. We will start patient on propranolol 10 mg twice a day due to tachycardia and elevated free T4 level. Endocrinology was consulted. Continue with lactulose and titrate to 2 bowel movements per day. patient has been counseled extensively to quit alcohol use. Further recommendations based on the clinical course. Prognosis is guarded. Time with Patient: Greater than 30
[2018-12-17] MEDS: LACTULOSE 20 GM/30 ML CUP PO SCH ×3 (00:07→20:46)
[2018-12-17] MEDS: PROPRANOLOL 10 MG TAB PO SCH ×3 (00:12→20:46)
[2018-12-17] MEDS: SODIUM CHLORIDE 0.9% 1,000 ML IV SCH ×2 (03:46→11:04)
[2018-12-17 07:23] LABS: Basophils % (A) 1 %; Eosinophils # (A) 0.2 k/uL (0-0.7); Eosinophils % (A) 3 %; HCT 35.6 % (39.0-53.0); HGB 11.5 gm/dL (13.0-17.5); Lymphocytes # (A) 1.1 k/uL (1.0-4.8); Lymphocytes % (A) 17 %; MCH 36.5 pg (25.0-35.0); MCHC 32.2 g/dL (31.0-37.0); MCV 113.4 fL (80.0-100.0); Macrocytosis Marked; Mean Platelet Volume 7.1; Monocytes # (A) 0.7 k/uL (0-1.0); Monocytes % (A) 10 %; Neutrophils # (A) 4.5 k/uL (1.3-7.7); Neutrophils % (A) 66 %; Platelet Count 123 k/uL (150-450); RBC 3.14 m/uL (4.30-5.90); RDW 13.7 % (11.5-15.5); WBC 6.8 k/uL (3.8-10.6)
[2018-12-17 07:31] LABS: ALT 39 U/L (21-72); AST 127 U/L (17-59); Albumin 2.9 g/dL (3.5-5.0); Alkaline Phosphatase 193 U/L (38-126); Anion Gap 9 mmol/L; Bilirubin, Conjugated 2.4 mg/dL (0.0-0.3); Bilirubin, Delta 3.7 mg/dL (0.0-0.2); Bilirubin,Unconjugated 3.9 mg/dL (0.0-1.1); Blood Urea Nitrogen 9 mg/dL (9-20); Calcium 8.1 mg/dL (8.4-10.2); Carbon Dioxide 25 mmol/L (22-30); Chloride 98 mmol/L (98-107); Glucose 104 mg/dL (74-99); Sodium 132 mmol/L (137-145); Total Protein 6.9 g/dL (6.3-8.2)
[2018-12-17 07:32] LABS: INR 1.9 (<1.2); Prothrombin Time 18.8 sec (9.0-12.0)
--- NOTE | 2018-12-17 09:25 | XR ---
EXAMINATION TYPE: XR chest 1V DATE OF EXAM: 12/17/2018 COMPARISON: NONE HISTORY: Shortness of breath TECHNIQUE: Single frontal view of the chest is obtained. FINDINGS: There is a coarsened interstitium with subsegmental changes at the right lung base. No ple ural effusion or pneumothorax. The heart is enlarged. IMPRESSION: 1. Coarsened interstitium can be seen with bronchitis or interstitial lung disease. Acute interstitia l pneumonitis or congestion not excluded. 2. Right basilar atelectasis favored over filtration correlate clinically.
--- NOTE | 2018-12-17 09:42 | US ---
EXAMINATION TYPE: US liver DATE OF EXAM: 12/17/2018 COMPARISON: NONE CLINICAL HISTORY: HCC screening, ascites. jaundice EXAM MEASUREMENTS: Liver Length: 22.4 cm Gallbladder Wall: 0.3 cm CBD: 0.8 cm Right Kidney: 10.9 x 5.5 x 5.3 cm Pancreas: By bowel gas Liver: enlarged Gallbladder: sludge and small stones seen' Evidence for sonographic Zaman's sign: no CBD: wnl Right Kidney: wnl *trace amount of free fluid near right lobe of liver. IMPRESSION: 1. Gallbladder sludge and cholelithiasis with the distal CBD dilated at 8 mm. Distal CBD stone or obs truction in the differential diagnosis. Gallbladder wall slightly thickened, cholecystitis in the dif ferential diagnosis. 2. Hepatomegaly. Correlate with LFTs. 3. A trace amount of free fluid
[2018-12-17 11:01] LABS: Protein, Total 5.5 g/dL (6.2-8.2)
[2018-12-17] MEDS: SPIRONOLACTONE 25 MG TAB PO SCH (11:02)
[2018-12-17] MEDS: FUROSEMIDE 10 MG/ML 2 ML VIAL IV SCH ×2 (11:02→20:46)
[2018-12-17 11:06] LABS: Ceruloplasmin 23.3 mg/dL (20.0-60.0)
[2018-12-17 11:12] LABS: Alpha Fetoprotein, Tumor Mkr 4.6 ng/mL (0.0-7.9)
[2018-12-17 11:22] LABS: Iron Saturation 54.89 (15.00-50.00)
[2018-12-17 11:30] LABS: Hepatitis A Antibody IgM Non-Reactive (Non-Reactive); Hepatitis B Core IgM Non-Reactive (Non-Reactive)
[2018-12-17] MEDS: THIAMINE 100 MG TAB PO SCH ×2 (12:46→18:05)
--- NOTE | 2018-12-17 15:07 | P.GSCN ---
History of Present Illness Consult date: 12/17/18 Reason for Consult: Cholelithiasis Requesting physician: Benitez Tomas History of present illness: CHIEF COMPLAINT: Cholelithiasis HISTORY OF PRESENT ILLNESS: 33-year-old male with a history of alcohol abuse who presented to emergency room due to jaundice and palpitations. Patient was found to have cholelithiasis. General surgery was consulted for further evaluation. Patient currently denies any abdominal pain. Denies nausea or vomiting. Patient denies any pain or discomfort in right upper quadrant prior to hospitalization. Denies intolerance of fatty foods. Denies family history of gallbladder disease. Patient reports he drinks 1 to 1.5 pints of liquor a day. PAST MEDICAL HISTORY: See list. PAST SURGICAL HISTORY: See list. MEDICATIONS: See list. ALLERGIES: See list. SOCIAL HISTORY: No illicit drug use. REVIEW OF SYSTEMS: CONSTITUTIONAL: Denies fever or chills. HEENT: Denies blurred vision, vision changes, or eye pain. ENDOCRINE: Denies heat or cold intolerance. CARDIOVASCULAR: Denies chest pain or pressure. RESPIRATORY: No shortness of breath. GASTROINTESTINAL: Denies abdominal pain. Denies nausea or vomiting. NEURO: Denies history of seizures. PSYCH: No depression or suicidal ideation HEMATOLOGIC: Denies bleeding disorders. LYMPHATIC: The patient denies any lumps and bumps around the neck. GENITOURINARY: Denies any blood in urine or increased urinary frequency. MUSCULOSKELETAL: Denies myalgias. Denies joint swelling. Denies decreased range of motion beyond patients baseline. SKIN: Denies pruitis. Denies rash. PHYSICAL EXAM: VITAL SIGNS: Currently stable. GENERAL: Well-developed in no acute distress. HEENT: Jaundice. Extraocular movements grossly intact. Moist buccal mucosa. Head is atraumatic, normocephalic. Hears conversational speech. No nasal drainage. NECK: Supple without lymphadenopathy. CHEST: Non-labored respirations and equal bilateral excursions. CARDIOVASCULAR: Regular rate with regular rhythm. Palpable 2+ radial pulses. ABDOMEN: Ascites present. Soft. Nontender. MUSCULOSKELETAL: No clubbing, cyanosis. Edema to bilateral LE. NEUROLOGIC: No focal or lateralizing signs. Cranial nerves II through XII grossly intact. PSYCH: Appropriate affect. Alert and oriented to person, place and time. SKIN: Well perfused. Good skin turgor. Jaundice. ASSESSMENT: 1. Cholelithiasis 2. Alcoholic liver disease 3. Coagulopathy secondary to liver disease 4. Hyperbilirubinemia 5. Alcohol abuse PLAN: Continue medical management. GI on consult and addressing liver disease. Dr. Solano recommends laparoscopic cholecystectomy when patient is medical stable- likely outpatient. Nurse practitioner note has been reviewed by physician. Signing provider agrees with the documented findings, assessment, and plan of care. Past Medical History Additional Past Medical History / Comment(s): colitis History of Any Multi-Drug Resistant Organisms: None Reported Past Surgical History: No Surgical Hx Reported Past Psychological History: No Psychological Hx Reported Smoking Status: Never smoker Past Alcohol Use History: Daily, Heavy Past Drug Use History: Marijuana - Past Family History Father History Unknown: Yes Mother History Unknown: Yes Medications and Allergies Home Medications Medication Instructions Recorded Confirmed Type Cyanocobalamin [Vitamin B-12] 500 mcg PO HS 12/15/18 12/15/18 History Allergies Allergy/AdvReac Type Severity Reaction Status Date / Time No Known Allergies Allergy Verified 12/15/18 20:45 Surgical - Exam Vital Signs Temp Pulse Resp BP Pulse Ox 98.1 F 109 H 18 149/85 100 12/15/18 17:23 12/15/18 17:23 12/15/18 17:23 12/15/18 17:23 12/15/18 17:23 Results - Labs 12/17/18 06:29 12/17/18 06:29 Abnormal Lab Results - Last 24 Hours (Table) 12/17/18 12/17/18 12/17/18 Range/Units 06:29 06:29 06:29 RBC (4.30-5.90) m/uL Hgb (13.0-17.5) gm/dL Hct (39.0-53.0) % MCV (80.0-100.0) fL MCH (25.0-35.0) pg Plt Count (150-450) k/uL PT 18.8 H (9.0-12.0) sec INR 1.9 H (<1.2) Sodium 132 L (137-145) mmol/L Creatinine 0.57 L (0.66-1.25) mg/dL Glucose 104 H (74-99) mg/dL Calcium 8.1 L (8.4-10.2) mg/dL TIBC 133 L (228-460) ug/dL Iron Saturation 54.89 H (15.00-50.00) Ferritin 929.5 H (22.0-322.0) ng/mL Total Bilirubin 10.0 H (0.2-1.3) mg/dL Conjugated Bilirubin 2.4 H (0.0-0.3) mg/dL Unconjugated Bilirubin 3.9 H (0.0-1.1) mg/dL Delta Bilirubin 3.7 H (0.0-0.2) mg/dL AST 127 H (17-59) U/L Alkaline Phosphatase 193 H (38-126) U/L Total Protein (PEP) 5.5 L (6.2-8.2) g/dL Albumin 2.9 L (3.5-5.0) g/dL 12/17/18 Range/Units 06:29 RBC 3.14 L (4.30-5.90) m/uL Hgb 11.5 L (13.0-17.5) gm/dL Hct 35.6 L (39.0-53.0) % MCV 113.4 H (80.0-100.0) fL MCH 36.5 H (25.0-35.0) pg Plt Count 123 L (150-450) k/uL PT (9.0-12.0) sec INR (<1.2) Sodium (137-145) mmol/L Creatinine (0.66-1.25) mg/dL Glucose (74-99) mg/dL Calcium (8.4-10.2) mg/dL TIBC (228-460) ug/dL Iron Saturation (15.00-50.00) Ferritin (22.0-322.0) ng/mL Total Bilirubin (0.2-1.3) mg/dL Conjugated Bilirubin (0.0-0.3) mg/dL Unconjugated Bilirubin (0.0-1.1) mg/dL Delta Bilirubin (0.0-0.2) mg/dL AST (17-59) U/L Alkaline Phosphatase (38-126) U/L Total Protein (PEP) (6.2-8.2) g/dL Albumin (3.5-5.0) g/dL Diabetes panel 12/17/18 Range/Units 06:29 Sodium 132 L (137-145) mmol/L Potassium 4.0 (3.5-5.1) mmol/L Chloride 98 (98-107) mmol/L Carbon Dioxide 25 (22-30) mmol/L BUN 9 (9-20) mg/dL Creatinine 0.57 L (0.66-1.25) mg/dL Glucose 104 H (74-99) mg/dL Calcium 8.1 L (8.4-10.2) mg/dL AST 127 H (17-59) U/L ALT 39 (21-72) U/L Alkaline Phosphatase 193 H (38-126) U/L Total Protein 6.9 (6.3-8.2) g/dL Albumin 2.9 L (3.5-5.0) g/dL Calcium panel 12/17/18 Range/Units 06:29 Calcium 8.1 L (8.4-10.2) mg/dL Albumin 2.9 L (3.5-5.0) g/dL Pituitary panel 12/17/18 Range/Units 06:29 Sodium 132 L (137-145) mmol/L Potassium 4.0 (3.5-5.1) mmol/L Chloride 98 (98-107) mmol/L Carbon Dioxide 25 (22-30) mmol/L BUN 9 (9-20) mg/dL Creatinine 0.57 L (0.66-1.25) mg/dL Glucose 104 H (74-99) mg/dL Calcium 8.1 L (8.4-10.2) mg/dL Adrenal panel 12/17/18 Range/Units 06:29 Sodium 132 L (137-145) mmol/L Potassium 4.0 (3.5-5.1) mmol/L Chloride 98 (98-107) mmol/L Carbon Dioxide 25 (22-30) mmol/L BUN 9 (9-20) mg/dL Creatinine 0.57 L (0.66-1.25) mg/dL Glucose 104 H (74-99) mg/dL Calcium 8.1 L (8.4-10.2) mg/dL Total Bilirubin 10.0 H (0.2-1.3) mg/dL AST 127 H (17-59) U/L ALT 39 (21-72) U/L Alkaline Phosphatase 193 H (38-126) U/L Total Protein 6.9 (6.3-8.2) g/dL Albumin 2.9 L (3.5-5.0) g/dL
--- NOTE | 2018-12-17 21:28 | PN ---
PROGRESS NOTE DATE OF SERVICE: 12/17/2018 This 33-year-old gentleman who was admitted alcoholism and possible alcoholic hepatitis is being closely monitored at this time. The patient has hyperbilirubinemia. The patient also had an ultrasound of the liver showed evidence of gallbladder sludge with cholelithiasis and possible gallbladder thickening and surgical evaluation has been sought. No chest pain. No palpitations. No fever. EXAM: Alert and oriented times three. Pulse 86. Blood pressure ntd respirations 16, temperature 97.2, pulse ox 97 percent on room air. HEENT: Conjunctivae anicteric. Oral mucosa moist. Neck is no jugular venous distention. No carotid bruit. CARDIOVASCULAR: S1, S2. Respirations: Breath sounds diminished in the bases. No rhonchi. No crackles. Abdomen is soft. Diffuse distention. LEGS: No edema. No swelling. Central nervous system: No focal deficits. LABS: WBC 6.1, hemoglobin 11.5, MCV ntd sodium 132, and otherwise total bilirubin is 10 and AST is 127. ASSESSMENT: 1. Hyperbilirubinemia with elevated liver enzymes, possibly alcoholic hepatitis. 2. Alcoholic liver disease and possible underlying cirrhosis. 3. Abdominal distention possible ascites. 4. Gallbladder sludge, cholelithiasis and possible cholecystitis, chronic. 5. Abdominal distention, ascites. 6. Bilateral lower extremity edema. 7. Severe alcohol abuse. 8. Coagulopathy secondary to liver disease. 9. Increased TSH and free T4. 10.Hypervolemic hyponatremia. 11.Mild hepatic encephalopathy, present on admission. 12.Deep vein thrombosis prophylaxis. RECOMMENDATIONS AND DISCUSSION: Recommend to continue current medications, management and symptomatic treatment. Otherwise, I would recommend to closely follow with social workers. Repeat labs. Hepatitis panel is negative. Gastroenterology evaluation. Surgical evaluation. Guarded prognosis. Further recommendations to follow. MMODL / IJN: [id number] / MTDD
--- NOTE | 2018-12-17 22:17 | P.PN ---
Subjective Progress Note Date: 12/17/18 Principal diagnosis: Elevated liver enzymes, jaundice Patient seen sitting bedside. No abdominal pain reported. Feels legs are less swollen. Tolerating diet. Objective - Vital Signs Vital signs: Vital Signs Temp 97.7 F 12/17/18 15:00 Pulse 81 12/17/18 15:00 Resp 12 12/17/18 15:00 BP 107/69 12/17/18 15:00 Pulse Ox 98 12/17/18 15:00 Intake & Output 12/17/18 12/17/18 12/18/18 06:59 18:59 06:59 Intake Total 240 350 Balance 240 350 Intake: Intake, IV Titration 350 Amount Sodium Chloride 0.9% 1, 350 000 ml @ 50 mls/hr IV . Q20H [facility] Rx#:[id number] Oral 240 0 - Exam On physical examination, patient appears comfortable in no apparent distress. HEAD: Normocephalic, atraumatic. EYES: Scleral icterus noted. No conjunctival injection. MOUTH: No lesions, tongue midline. NECK: Trachea midline, no gross abnormalities. CHEST: Clear to auscultation with no wheezing or rhonchi appreciated. HEART: Regular rate and rhythm. ABDOMEN: Soft, obese, distended. Bowel sounds are positive. No organomegaly. No guarding or rigidity. EXTREMITIES: No pedal edema. SKIN: No rashes, jaundice. NEUROLOGIC: Alert and oriented x3. No asterixis No focal deficits. - Labs CBC & Chem 7: 12/17/18 06:29 12/17/18 06:29 Labs: Abnormal Lab Results - Last 24 Hours (Table) 12/17/18 12/17/18 12/17/18 Range/Units 06:29 06:29 06:29 RBC (4.30-5.90) m/uL Hgb (13.0-17.5) gm/dL Hct (39.0-53.0) % MCV (80.0-100.0) fL MCH (25.0-35.0) pg Plt Count (150-450) k/uL PT 18.8 H (9.0-12.0) sec INR 1.9 H (<1.2) Sodium 132 L (137-145) mmol/L Creatinine 0.57 L (0.66-1.25) mg/dL Glucose 104 H (74-99) mg/dL Calcium 8.1 L (8.4-10.2) mg/dL TIBC 133 L (228-460) ug/dL Iron Saturation 54.89 H (15.00-50.00) Ferritin 929.5 H (22.0-322.0) ng/mL Total Bilirubin 10.0 H (0.2-1.3) mg/dL Conjugated Bilirubin 2.4 H (0.0-0.3) mg/dL Unconjugated Bilirubin 3.9 H (0.0-1.1) mg/dL Delta Bilirubin 3.7 H (0.0-0.2) mg/dL AST 127 H (17-59) U/L Alkaline Phosphatase 193 H (38-126) U/L Total Protein (PEP) 5.5 L (6.2-8.2) g/dL Albumin 2.9 L (3.5-5.0) g/dL 12/17/18 Range/Units 06:29 RBC 3.14 L (4.30-5.90) m/uL Hgb 11.5 L (13.0-17.5) gm/dL Hct 35.6 L (39.0-53.0) % MCV 113.4 H (80.0-100.0) fL MCH 36.5 H (25.0-35.0) pg Plt Count 123 L (150-450) k/uL PT (9.0-12.0) sec INR (<1.2) Sodium (137-145) mmol/L Creatinine (0.66-1.25) mg/dL Glucose (74-99) mg/dL Calcium (8.4-10.2) mg/dL TIBC (228-460) ug/dL Iron Saturation (15.00-50.00) Ferritin (22.0-322.0) ng/mL Total Bilirubin (0.2-1.3) mg/dL Conjugated Bilirubin (0.0-0.3) mg/dL Unconjugated Bilirubin (0.0-1.1) mg/dL Delta Bilirubin (0.0-0.2) mg/dL AST (17-59) U/L Alkaline Phosphatase (38-126) U/L Total Protein (PEP) (6.2-8.2) g/dL Albumin (3.5-5.0) g/dL Assessment and Plan (1) Alcoholic liver disease Narrative/Plan: 33-year-old male with a 13 year history of alcohol abuse who presents with complaints of lower extremity edema, abdominal distention and jaundice. Serologically appears patient is cirrhotic, however no tissue diagnosis has ever been made. Ceruloplasmin, alpha-1 antitrypsin, viral hepatitis panel, AFP of negative. Ferritin was elevated but likely related to alcoholic liver disease. Extensive discussion with the patient on the need for alcohol abstinence. Current Visit: Yes Status: Acute Code(s): K70.9 - ALCOHOLIC LIVER DISEASE, UNSPECIFIED SNOMED Code(s): 71661236 (2) Hyperbilirubinemia Current Visit: Yes Status: Acute Code(s): E80.6 - OTHER DISORDERS OF BILIRUBIN METABOLISM SNOMED Code(s): 45197712 Plan: Supportive care low-sodium diet Monitor liver enzymes Full liver serologies negative today Lasix and Aldactone initiated Ultrasound paracentesis ordered, however only minimal ascites seen on ultrasound Ultrasound and AFP for HCC screening negative Extensive discussion with the patient on the need for alcohol abstinence Extensive discussion with the patient on liver disease and signs and symptoms of decompensated cirrhosis Monitor for alcohol withdrawal Thank you for allowing us to participate in the care of the patient we will continue to follow
[2018-12-18 09:00] LABS: ALT 37 U/L (21-72); AST 104 U/L (17-59); Albumin 2.5 g/dL (3.5-5.0); Alkaline Phosphatase 186 U/L (38-126); Anion Gap 8 mmol/L; Blood Urea Nitrogen 12 mg/dL (9-20); Calcium 7.9 mg/dL (8.4-10.2); Carbon Dioxide 25 mmol/L (22-30); Chloride 101 mmol/L (98-107); Glucose 129 mg/dL (74-99); Potassium 3.9 mmol/L (3.5-5.1); Sodium 134 mmol/L (137-145); Total Bilirubin 8.7 mg/dL (0.2-1.3); Total Protein 6.1 g/dL (6.3-8.2)
[2018-12-18] MEDS: THIAMINE 100 MG TAB PO SCH ×2 (09:19→16:50)
[2018-12-18] MEDS: SPIRONOLACTONE 25 MG TAB PO SCH (09:19)
[2018-12-18] MEDS: FUROSEMIDE 10 MG/ML 2 ML VIAL IV SCH (09:19)
[2018-12-18] MEDS: PROPRANOLOL 10 MG TAB PO SCH ×2 (09:19→20:44)
[2018-12-18 09:22] LABS: Basophils % (A) 1 %; Eosinophils # (A) 0.2 k/uL (0-0.7); Eosinophils % (A) 3 %; HCT 34.3 % (39.0-53.0); HGB 10.8 gm/dL (13.0-17.5); Lymphocytes % (A) 11 %; MCH 35.8 pg (25.0-35.0); MCHC 31.5 g/dL (31.0-37.0); MCV 113.4 fL (80.0-100.0); Macrocytosis Marked; Mean Platelet Volume 7.1; Monocytes # (A) 0.9 k/uL (0-1.0); Monocytes % (A) 11 %; Neutrophils # (A) 6.3 k/uL (1.3-7.7); Neutrophils % (A) 72 %; Platelet Count 152 k/uL (150-450); RBC 3.02 m/uL (4.30-5.90); RDW 13.8 % (11.5-15.5); WBC 8.8 k/uL (3.8-10.6)
--- NOTE | 2018-12-18 09:53 | P.PN ---
Subjective Progress Note Date: 12/18/18 CHIEF COMPLAINT: Cholelithiasis HISTORY OF PRESENT ILLNESS: 33-year-old male with a history of alcohol abuse who presented to emergency room due to jaundice and palpitations. Patient was found to have cholelithiasis. Paracentesis was not performed yesterday due to insufficient amount of ascites fluid. Patient examined at the bedside. He currently denies abdominal pain. Denies nausea or vomiting. Tolerating low fat diet. Awaiting repeat labs from this AM. PHYSICAL EXAM: VITAL SIGNS: Currently stable. GENERAL: Well-developed in no acute distress. HEENT: Jaundice. Extraocular movements grossly intact. Moist buccal mucosa. Head is atraumatic, normocephalic. Hears conversational speech. No nasal drainage. NECK: Supple without lymphadenopathy. CHEST: Non-labored respirations and equal bilateral excursions. CARDIOVASCULAR: Regular rate with regular rhythm. Palpable 2+ radial pulses. ABDOMEN: Ascites present. Soft. Nontender. MUSCULOSKELETAL: No clubbing, cyanosis. Edema to bilateral LE. NEUROLOGIC: No focal or lateralizing signs. Cranial nerves II through XII grossly intact. PSYCH: Appropriate affect. Alert and oriented to person, place and time. SKIN: Well perfused. Good skin turgor. Jaundice. ASSESSMENT: 1. Cholelithiasis 2. Alcoholic liver disease 3. Coagulopathy secondary to liver disease 4. Hyperbilirubinemia 5. Alcohol abuse PLAN: Continue medical management. GI on consult and addressing liver disease. Dr. Solano recommends laparoscopic cholecystectomy when patient is medical stable. Dr. Solano states he may do inpatient laparoscopic cholecystectomy. Will require correction of coagulopathy prior to procedure. Await repeat lab results from this morning. Nurse practitioner note has been reviewed by physician. Signing provider agrees with the documented findings, assessment, and plan of care. Objective - Vital Signs Vital signs: Vital Signs Temp 98.3 F 12/18/18 07:00 Pulse 84 12/18/18 07:00 Resp 14 12/18/18 07:00 BP 102/64 12/18/18 07:00 Pulse Ox 95 12/18/18 07:00 Intake & Output 12/17/18 12/18/18 12/18/18 18:59 06:59 18:59 Intake Total 350 1580 Balance 350 1580 Intake: Intake, IV Titration 350 500 Amount Sodium Chloride 0.9% 1, 350 500 000 ml @ 50 mls/hr IV . Q20H [facility] Rx#:[id number] Oral 0 1080 Other: # Voids 3 - Labs CBC & Chem 7: 12/18/18 08:33 12/18/18 08:33 Labs: Abnormal Lab Results - Last 24 Hours (Table) 12/17/18 12/18/18 12/18/18 Range/Units 06:29 08:33 08:33 RBC 3.02 L (4.30-5.90) m/uL Hgb 10.8 L (13.0-17.5) gm/dL Hct 34.3 L (39.0-53.0) % MCV 113.4 H (80.0-100.0) fL MCH 35.8 H (25.0-35.0) pg Sodium 134 L (137-145) mmol/L Creatinine 0.61 L (0.66-1.25) mg/dL Glucose 129 H (74-99) mg/dL Calcium 7.9 L (8.4-10.2) mg/dL TIBC 133 L (228-460) ug/dL Iron Saturation 54.89 H (15.00-50.00) Ferritin 929.5 H (22.0-322.0) ng/mL Total Bilirubin 8.7 H (0.2-1.3) mg/dL AST 104 H (17-59) U/L Alkaline Phosphatase 186 H (38-126) U/L Total Protein 6.1 L (6.3-8.2) g/dL Total Protein (PEP) 5.5 L (6.2-8.2) g/dL Albumin 2.5 L (3.5-5.0) g/dL
--- NOTE | 2018-12-18 11:12 | P.PN ---
Subjective Progress Note Date: 12/18/18 Principal diagnosis: Elevated liver enzymes jaundice Reports improvement in leg edema size feels swollen. Tolerating diet. Total bilirubin improving 8.7. AST 104. ALT 37. AP 186. Objective - Vital Signs Vital signs: Vital Signs Temp 98.3 F 12/18/18 07:00 Pulse 84 12/18/18 09:19 Resp 14 12/18/18 09:19 BP 102/64 12/18/18 07:00 Pulse Ox 95 12/18/18 07:00 Intake & Output 12/17/18 12/18/18 12/18/18 18:59 06:59 18:59 Intake Total 350 1580 Balance 350 1580 Intake: Intake, IV Titration 350 500 Amount Sodium Chloride 0.9% 1, 350 500 000 ml @ 50 mls/hr IV . Q20H [facility] Rx#:[id number] Oral 0 1080 Other: # Voids 3 - Exam General appearance: The patient is alert, oriented, in no acute distress. Jaundice. HET: Head is normocephalic and atraumatic. Pupils are equal and reactive. Sclerae icterus. Oropharynx is clear without lesions. Neck: Supple without lymphadenopathy. Trachea midline. Heart: S1 S2. Regular rate and rhythm. Lungs: No crackles or wheezes are heard. Abdomen: Soft, nontender, mildly bloated with bowel sounds. No peritoneal signs. No palpable organomegaly or masses. Extremities: +2 bilateral lower extremity edema. Radial and pedal pulses are 2 /4 bilaterally. Neurological: No focal deficits. Strength and sensation are grossly intact. - Labs CBC & Chem 7: 12/18/18 08:33 12/18/18 08:33 Labs: Abnormal Lab Results - Last 24 Hours (Table) 12/17/18 12/18/18 12/18/18 Range/Units 06:29 08:33 08:33 RBC 3.02 L (4.30-5.90) m/uL Hgb 10.8 L (13.0-17.5) gm/dL Hct 34.3 L (39.0-53.0) % MCV 113.4 H (80.0-100.0) fL MCH 35.8 H (25.0-35.0) pg Sodium 134 L (137-145) mmol/L Creatinine 0.61 L (0.66-1.25) mg/dL Glucose 129 H (74-99) mg/dL Calcium 7.9 L (8.4-10.2) mg/dL TIBC 133 L (228-460) ug/dL Iron Saturation 54.89 H (15.00-50.00) Ferritin 929.5 H (22.0-322.0) ng/mL Total Bilirubin 8.7 H (0.2-1.3) mg/dL AST 104 H (17-59) U/L Alkaline Phosphatase 186 H (38-126) U/L Total Protein 6.1 L (6.3-8.2) g/dL Albumin 2.5 L (3.5-5.0) g/dL Assessment and Plan (1) Alcoholic liver disease Current Visit: Yes Status: Acute Code(s): K70.9 - ALCOHOLIC LIVER DISEASE, UNSPECIFIED SNOMED Code(s): 43356027 (2) Hyperbilirubinemia Current Visit: Yes Status: Acute Code(s): E80.6 - OTHER DISORDERS OF BILIRUBIN METABOLISM SNOMED Code(s): 46235539 Plan: 1. Supportive care. GS following. Daily monitoring of liver enzymes. Low- salt diet. Continue diuresis. Assessment and plan a care discussed with Dr. Edmond
[2018-12-18 11:27] LABS: Liver/Kidney Microsome Antibod 1.6 UNITS (<=20)
[2018-12-18 11:42] LABS: INR 1.9 (<1.2); Prothrombin Time 18.4 sec (9.0-12.0)
[2018-12-18] MEDS ORDERED: PHYTONADIONE 10 MG in SODIUM CHLORIDE 0.9% 50 ML IVPB STA (12:34)
[2018-12-18 13:05] LABS: Albumin 2.46 g/dL (3.80-4.90); Gamma Globulin 1.58 g/dL (0.70-1.50)
--- NOTE | 2018-12-18 16:54 | P.PN ---
Subjective 33-year-old male was admitted for volume overload secondary to cirrhosis patient does have acute alcoholic hepatitis with highly elevated bilirubin. Patient will be diuresed and we'll increase the Lasix 40 mg IV along with Aldactone electrolytes will be closely monitored along with liver function. Patient still has significant pedal edema IV fluids will be discontinued patient blood pressure is borderline. Does have abdominal distention from ascites, no clinical evidence of hepatic encephalopathy at this time. Constitutional: Patient is complaining of tiredness weakness Cardio vascular: denied any chest pain, palpitations Gastrointestinal denied any nausea vomiting Pulmonary: Denied any shortness of breath cough Neurologic denied any new focal deficits All inpatient medications were reviewed and appropriate changes in these medications as dictated in the interval history and assessment and plan. Objective - Vital Signs Vital signs: Vital Signs Temp 98.4 F 12/18/18 15:00 Pulse 84 12/18/18 15:48 Resp 14 12/18/18 15:48 BP 98/65 12/18/18 15:00 Pulse Ox 95 12/18/18 07:00 Intake & Output 12/17/18 12/18/18 12/18/18 18:59 06:59 18:59 Intake Total 350 1580 910 Balance 350 1580 910 Intake: Intake, IV Titration 350 500 350 Amount Sodium Chloride 0.9% 1, 350 500 350 000 ml @ 50 mls/hr IV . Q20H [facility] Rx#:[id number] Oral 0 1080 560 Other: # Voids 3 - Exam PHYSICAL EXAMINATION: GENERAL: The patient is alert and oriented x3, not in any acute distress. Well developed, well nourished. HEENT: Pupils are round and equally reacting to light. EOMI. does have a low is discoloration of the skin along with scleral icterus. No conjunctival pallor. Normocephalic, atraumatic. No pharyngeal erythema. No thyromegaly. CARDIOVASCULAR: S1 and S2 present. No murmurs, rubs, or gallops. PULMONARY: Chest is clear to auscultation, no wheezing or crackles. ABDOMEN: Soft, distended with mild shifting dullness. No tenderness MUSCULOSKELETAL: No joint swelling or deformity. EXTREMITIES: No cyanosis, clubbing, or pedal edema. NEUROLOGICAL: Gross neurological examination did not reveal any focal deficits. SKIN: No rashes. - Labs CBC & Chem 7: 12/18/18 08:33 12/18/18 08:33 Labs: Abnormal Lab Results - Last 24 Hours (Table) 12/17/18 12/18/18 12/18/18 Range/Units 06:29 08:33 08:33 RBC 3.02 L (4.30-5.90) m/uL Hgb 10.8 L (13.0-17.5) gm/dL Hct 34.3 L (39.0-53.0) % MCV 113.4 H (80.0-100.0) fL MCH 35.8 H (25.0-35.0) pg PT (9.0-12.0) sec INR (<1.2) Sodium 134 L (137-145) mmol/L Creatinine 0.61 L (0.66-1.25) mg/dL Glucose 129 H (74-99) mg/dL Calcium 7.9 L (8.4-10.2) mg/dL Total Bilirubin 8.7 H (0.2-1.3) mg/dL AST 104 H (17-59) U/L Alkaline Phosphatase 186 H (38-126) U/L Total Protein 6.1 L (6.3-8.2) g/dL Albumin 2.5 L (3.5-5.0) g/dL Albumin (PEP) 2.46 L (3.80-4.90) g/dL Mebft-5-Ygiynfkud 0.49 L (0.60-1.00) g/dL Gamma Globulins 1.58 H (0.70-1.50) g/dL 12/18/18 Range/Units 11:00 RBC (4.30-5.90) m/uL Hgb (13.0-17.5) gm/dL Hct (39.0-53.0) % MCV (80.0-100.0) fL MCH (25.0-35.0) pg PT 18.4 H (9.0-12.0) sec INR 1.9 H (<1.2) Sodium (137-145) mmol/L Creatinine (0.66-1.25) mg/dL Glucose (74-99) mg/dL Calcium (8.4-10.2) mg/dL Total Bilirubin (0.2-1.3) mg/dL AST (17-59) U/L Alkaline Phosphatase (38-126) U/L Total Protein (6.3-8.2) g/dL Albumin (3.5-5.0) g/dL Albumin (PEP) (3.80-4.90) g/dL Bssne-8-Zamucofgh (0.60-1.00) g/dL Gamma Globulins (0.70-1.50) g/dL Assessment and Plan Plan: -Volume overload secondary to cirrhosis, continue with diuretic therapy as mentioned above repeat compressive metabolic profile tomorrow -Acute alcoholic hepatitis with highly elevated bilirubin which is expected to improve with cessation of alcohol -Cardiopathy secondary to liver disease patient is receiving IV vitamin K at this time -Anasarca secondary to cirrhosis -Elevated TSH and T4: TSH need to be repeated in about a month palpitations are secondary to cirrhosis -Hyponatremia hypervolemic hyponatremia expected to improve with IV Lasix -Alcohol abuse: Counseling was provided -Portal hypertension for which patient is on propranolol which will be continued
[2018-12-18] MEDS: FUROSEMIDE 10 MG/ML 4 ML VIAL IV SCH (20:44)
[2018-12-19 09:01] LABS: HCT 32.7 % (39.0-53.0); HGB 10.2 gm/dL (13.0-17.5); MCH 35.5 pg (25.0-35.0); MCHC 31.3 g/dL (31.0-37.0); MCV 113.3 fL (80.0-100.0); Macrocytosis Marked; Mean Platelet Volume 7.4; Platelet Count 120 k/uL (150-450); RBC 2.89 m/uL (4.30-5.90); WBC 6.8 k/uL (3.8-10.6)
[2018-12-19 09:05] LABS: INR 1.9 (<1.2)
[2018-12-19 09:06] LABS: Prothrombin Time 18.8 sec (9.0-12.0)
[2018-12-19] MEDS ORDERED: PHYTONADIONE 10 MG in SODIUM CHLORIDE 0.9% 50 ML IVPB STA ×2 (09:27→20:40)
[2018-12-19 09:38] LABS: ALT 37 U/L (21-72); AST 105 U/L (17-59); Albumin 2.5 g/dL (3.5-5.0); Alkaline Phosphatase 185 U/L (38-126); Anion Gap 7 mmol/L; Blood Urea Nitrogen 13 mg/dL (9-20); Carbon Dioxide 26 mmol/L (22-30); Chloride 100 mmol/L (98-107); Glucose 99 mg/dL (74-99); Potassium 3.8 mmol/L (3.5-5.1); Sodium 133 mmol/L (137-145); Total Bilirubin 8.3 mg/dL (0.2-1.3); Total Protein 6.1 g/dL (6.3-8.2)
[2018-12-19 10:07] LABS: Band Neutrophils % 1 %; Basophils # (M) 0.07 k/uL (0-0.2); Eosinophils # (M) 0.07 k/uL (0-0.7); Lymphocytes # (M) 0.88 k/uL (1.0-4.8); Monocytes # (M) 0.54 k/uL (0-1.0); Neutrophils % (M) 76 %; Nucleated Red Blood Cells 0 /100 WBC (0-0); Total Cells Counted 100
[2018-12-19] MEDS: PROPRANOLOL 10 MG TAB PO SCH ×2 (10:14→21:53)
[2018-12-19] MEDS: SPIRONOLACTONE 25 MG TAB PO SCH (10:14)
[2018-12-19] MEDS: THIAMINE 100 MG TAB PO SCH ×2 (10:14→16:20)
[2018-12-19] MEDS: FUROSEMIDE 10 MG/ML 4 ML VIAL IV SCH ×2 (10:14→21:52)
--- NOTE | 2018-12-19 10:28 | P.PN ---
Subjective Progress Note Date: 12/19/18 CHIEF COMPLAINT: Cholelithiasis HISTORY OF PRESENT ILLNESS: Patient examined at the bedside. Patient reports he is tired this morning. He denies abdominal pain. Denies nausea or vomiting. Patient remains NPO. INR remains elevated at 1.9 this morning. PHYSICAL EXAM: VITAL SIGNS: Currently stable. GENERAL: Well-developed in no acute distress. HEENT: Jaundice. Extraocular movements grossly intact. Moist buccal mucosa. Head is atraumatic, normocephalic. Hears conversational speech. No nasal drainage. NECK: Supple without lymphadenopathy. CHEST: Non-labored respirations and equal bilateral excursions. CARDIOVASCULAR: Regular rate with regular rhythm. Palpable 2+ radial pulses. ABDOMEN: Ascites present. Soft. Nontender. MUSCULOSKELETAL: No clubbing, cyanosis. Edema to bilateral LE. NEUROLOGIC: No focal or lateralizing signs. Cranial nerves II through XII grossly intact. PSYCH: Appropriate affect. Alert and oriented to person, place and time. SKIN: Well perfused. Good skin turgor. Jaundice. ASSESSMENT: 1. Cholelithiasis 2. Alcoholic liver disease 3. Coagulopathy secondary to liver disease 4. Hyperbilirubinemia 5. Alcohol abuse PLAN: Discussed case with Dr. Solano. He would like the patient to have 10mg Vitamin K and 2 FFP this morning. Keep patient NPO. Recheck INR this afternoon. Possible lap tanner this afternoon pending correction of INR. Nurse practitioner note has been reviewed by physician. Signing provider agrees with the documented findings, assessment, and plan of care. Objective - Vital Signs Vital signs: Vital Signs Temp 98.3 F 12/19/18 07:00 Pulse 90 12/19/18 07:00 Resp 16 12/19/18 07:00 BP 102/68 12/19/18 07:00 Pulse Ox 97 12/19/18 07:00 Intake & Output 12/18/18 12/19/18 12/19/18 18:59 06:59 18:59 Intake Total 1090 1080 Balance 1090 1080 Intake: Intake, IV Titration 350 Amount Sodium Chloride 0.9% 1, 350 000 ml @ 50 mls/hr IV . Q20H [facility] Rx#:[id number] Oral 740 1080 Other: # Voids 2 - Labs CBC & Chem 7: 12/19/18 08:15 02/27/19 08:15 Labs: Abnormal Lab Results - Last 24 Hours (Table) 12/17/18 12/18/18 12/18/18 Range/Units 06:29 08:33 11:00 RBC 3.02 L (4.30-5.90) m/uL Hgb 10.8 L (13.0-17.5) gm/dL Hct 34.3 L (39.0-53.0) % MCV 113.4 H (80.0-100.0) fL MCH 35.8 H (25.0-35.0) pg Plt Count (150-450) k/uL Lymphocytes # (Manual) (1.0-4.8) k/uL PT 18.4 H (9.0-12.0) sec INR 1.9 H (<1.2) Sodium (137-145) mmol/L Creatinine (0.66-1.25) mg/dL Calcium (8.4-10.2) mg/dL Total Bilirubin (0.2-1.3) mg/dL AST (17-59) U/L Alkaline Phosphatase (38-126) U/L Total Protein (6.3-8.2) g/dL Albumin (3.5-5.0) g/dL Albumin (PEP) 2.46 L (3.80-4.90) g/dL Xdhzb-9-Fpcvhhcuf 0.49 L (0.60-1.00) g/dL Gamma Globulins 1.58 H (0.70-1.50) g/dL 12/19/18 12/19/18 12/19/18 Range/Units 08:15 08:15 08:15 RBC 2.89 L (4.30-5.90) m/uL Hgb 10.2 L (13.0-17.5) gm/dL Hct 32.7 L (39.0-53.0) % MCV 113.3 H (80.0-100.0) fL MCH 35.5 H (25.0-35.0) pg Plt Count 120 L (150-450) k/uL Lymphocytes # (Manual) 0.88 L (1.0-4.8) k/uL PT 18.8 H (9.0-12.0) sec INR 1.9 H (<1.2) Sodium 133 L (137-145) mmol/L Creatinine 0.62 L (0.66-1.25) mg/dL Calcium 8.0 L (8.4-10.2) mg/dL Total Bilirubin 8.3 H (0.2-1.3) mg/dL AST 105 H (17-59) U/L Alkaline Phosphatase 185 H (38-126) U/L Total Protein 6.1 L (6.3-8.2) g/dL Albumin 2.5 L (3.5-5.0) g/dL Albumin (PEP) (3.80-4.90) g/dL Apnlv-0-Ridsezniy (0.60-1.00) g/dL Gamma Globulins (0.70-1.50) g/dL
--- NOTE | 2018-12-19 13:08 | P.PN ---
Subjective Progress Note Date: 12/19/18 Principal diagnosis: Elevated liver enzymes jaundice Scheduled for today cholecystectomy with general surgery. INR 1.9 stable. Total bilirubin improving 8.3. AST 105. ALT 37. AP 185. Platelet 120. Objective - Vital Signs Vital signs: Vital Signs Temp 98.3 F 12/19/18 07:00 Pulse 90 12/19/18 08:00 Resp 16 12/19/18 08:00 BP 102/68 12/19/18 07:00 Pulse Ox 97 12/19/18 07:00 Intake & Output 12/18/18 12/19/18 12/19/18 18:59 06:59 18:59 Intake Total 1090 1080 Balance 1090 1080 Intake: Intake, IV Titration 350 Amount Sodium Chloride 0.9% 1, 350 000 ml @ 50 mls/hr IV . Q20H [facility] Rx#:[id number] Oral 740 1080 Other: # Voids 2 - Exam General appearance: The patient is alert, oriented, in no acute distress. Jaundice. HET: Head is normocephalic and atraumatic. Pupils are equal and reactive. Sclerae icterus. Oropharynx is clear without lesions. Neck: Supple without lymphadenopathy. Trachea midline. Heart: S1 S2. Regular rate and rhythm. Lungs: No crackles or wheezes are heard. Abdomen: Soft, nontender, mildly bloated with bowel sounds. No peritoneal signs. No palpable organomegaly or masses. Extremities: +2 bilateral lower extremity edema. Radial and pedal pulses are 2 /4 bilaterally. Neurological: No focal deficits. Strength and sensation are grossly intact. - Labs CBC & Chem 7: 12/19/18 08:15 12/19/18 08:15 Labs: Abnormal Lab Results - Last 24 Hours (Table) 12/19/18 12/19/18 12/19/18 Range/Units 08:15 08:15 08:15 RBC 2.89 L (4.30-5.90) m/uL Hgb 10.2 L (13.0-17.5) gm/dL Hct 32.7 L (39.0-53.0) % MCV 113.3 H (80.0-100.0) fL MCH 35.5 H (25.0-35.0) pg Plt Count 120 L (150-450) k/uL Lymphocytes # (Manual) 0.88 L (1.0-4.8) k/uL PT 18.8 H (9.0-12.0) sec INR 1.9 H (<1.2) Sodium 133 L (137-145) mmol/L Creatinine 0.62 L (0.66-1.25) mg/dL Calcium 8.0 L (8.4-10.2) mg/dL Total Bilirubin 8.3 H (0.2-1.3) mg/dL AST 105 H (17-59) U/L Alkaline Phosphatase 185 H (38-126) U/L Total Protein 6.1 L (6.3-8.2) g/dL Albumin 2.5 L (3.5-5.0) g/dL Assessment and Plan (1) Alcoholic liver disease Current Visit: Yes Status: Acute Code(s): K70.9 - ALCOHOLIC LIVER DISEASE, UNSPECIFIED SNOMED Code(s): 29905213 (2) Hyperbilirubinemia Current Visit: Yes Status: Acute Code(s): E80.6 - OTHER DISORDERS OF BILIRUBIN METABOLISM SNOMED Code(s): 25327963 (3) Coagulopathy Current Visit: Yes Status: Acute Code(s): D68.9 - COAGULATION DEFECT, UNSPECIFIED SNOMED Code(s): 49632103 (4) Thrombocytopenia Narrative/Plan: Mild Current Visit: Yes Status: Acute Code(s): D69.6 - THROMBOCYTOPENIA, UNSPECIFIED SNOMED Code(s): 790194448 Plan: 1. OR today. Supportive care. Daily monitoring of liver enzymes. Continue diuresis. Assessment and plan a care discussed with Dr. Edmond
--- NOTE | 2018-12-19 15:12 | P.PN ---
Subjective 33-year-old male was admitted for volume overload secondary to cirrhosis patient does have acute alcoholic hepatitis with highly elevated bilirubin. Patient will be diuresed and we'll increase the Lasix 40 mg IV along with Aldactone electrolytes will be closely monitored along with liver function. Patient still has significant pedal edema IV fluids will be discontinued patient blood pressure is borderline. Does have abdominal distention from ascites, no clinical evidence of hepatic encephalopathy at this time. 12/19/2018 Patient was scheduled for cholecystectomy, cholecystectomy to [place] is being held because of elevated INR of 1.9 patient does have cholelithiasis with mildly dilated common bile duct, gastroenterology as well as general surgery have following the patient. Patient will be given another dose of IV vitamin K Constitutional: Patient is complaining of tiredness weakness Cardio vascular: denied any chest pain, palpitations Gastrointestinal denied any nausea vomiting Pulmonary: Denied any shortness of breath cough Neurologic denied any new focal deficits All inpatient medications were reviewed and appropriate changes in these medications as dictated in the interval history and assessment and plan. Objective - Vital Signs Vital signs: Vital Signs Temp 98.0 F 12/19/18 14:53 Pulse 80 12/19/18 14:53 Resp 16 12/19/18 14:53 BP 102/63 12/19/18 14:53 Pulse Ox 99 12/19/18 14:43 Intake & Output 12/18/18 12/19/18 12/19/18 18:59 06:59 18:59 Intake Total 1090 1080 50 Balance 1090 1080 50 Intake: Intake, IV Titration 350 50 Amount Phytonadione 10 mg In 50 Sodium Chloride 0.9% 50 ml @ 100 mls/hr IVPB ONCE STA Rx#:[id number] Sodium Chloride 0.9% 1, 350 000 ml @ 50 mls/hr IV . Q20H TRACEE Rx#:[id number] Oral 740 1080 Blood Product 0 Ffp 24 Cp2d Unit 0 [id number] Other: # Voids 2 - Labs CBC & Chem 7: 12/19/18 08:15 12/19/18 08:15 Labs: Abnormal Lab Results - Last 24 Hours (Table) 12/19/18 12/19/18 12/19/18 Range/Units 08:15 08:15 08:15 RBC 2.89 L (4.30-5.90) m/uL Hgb 10.2 L (13.0-17.5) gm/dL Hct 32.7 L (39.0-53.0) % MCV 113.3 H (80.0-100.0) fL MCH 35.5 H (25.0-35.0) pg Plt Count 120 L (150-450) k/uL Lymphocytes # (Manual) 0.88 L (1.0-4.8) k/uL PT 18.8 H (9.0-12.0) sec INR 1.9 H (<1.2) Sodium 133 L (137-145) mmol/L Creatinine 0.62 L (0.66-1.25) mg/dL Calcium 8.0 L (8.4-10.2) mg/dL Total Bilirubin 8.3 H (0.2-1.3) mg/dL AST 105 H (17-59) U/L Alkaline Phosphatase 185 H (38-126) U/L Total Protein 6.1 L (6.3-8.2) g/dL Albumin 2.5 L (3.5-5.0) g/dL
--- NOTE | 2018-12-19 15:14 | P.PN ---
Subjective 33-year-old male was admitted for volume overload secondary to cirrhosis patient does have acute alcoholic hepatitis with highly elevated bilirubin. Patient will be diuresed and we'll increase the Lasix 40 mg IV along with Aldactone electrolytes will be closely monitored along with liver function. Patient still has significant pedal edema IV fluids will be discontinued patient blood pressure is borderline. Does have abdominal distention from ascites, no clinical evidence of hepatic encephalopathy at this time. 12/19/2018 Patient was scheduled for cholecystectomy, cholecystectomy to [place] is being held because of elevated INR of 1.9 patient does have cholelithiasis with mildly dilated common bile duct, gastroenterology as well as general surgery have following the patient. Patient will be given another dose of IV vitamin K Constitutional: Patient is complaining of tiredness weakness Cardio vascular: denied any chest pain, palpitations Gastrointestinal denied any nausea vomiting Pulmonary: Denied any shortness of breath cough Neurologic denied any new focal deficits All inpatient medications were reviewed and appropriate changes in these medications as dictated in the interval history and assessment and plan. Objective - Vital Signs Vital signs: Vital Signs Temp 98.0 F 12/19/18 14:53 Pulse 80 12/19/18 14:53 Resp 16 12/19/18 14:53 BP 102/63 12/19/18 14:53 Pulse Ox 99 12/19/18 14:43 Intake & Output 12/18/18 12/19/18 12/19/18 18:59 06:59 18:59 Intake Total 1090 1080 50 Balance 1090 1080 50 Intake: Intake, IV Titration 350 50 Amount Phytonadione 10 mg In 50 Sodium Chloride 0.9% 50 ml @ 100 mls/hr IVPB ONCE STA Rx#:[id number] Sodium Chloride 0.9% 1, 350 000 ml @ 50 mls/hr IV . Q20H TRACEE Rx#:[id number] Oral 740 1080 Blood Product 0 Ffp 24 Cp2d Unit 0 [id number] Other: # Voids 2 - Exam PHYSICAL EXAMINATION: GENERAL: The patient is alert and oriented x3, not in any acute distress. Well developed, well nourished. HEENT: Pupils are round and equally reacting to light. EOMI. does have a low is discoloration of the skin along with scleral icterus. No conjunctival pallor. Normocephalic, atraumatic. No pharyngeal erythema. No thyromegaly. CARDIOVASCULAR: S1 and S2 present. No murmurs, rubs, or gallops. PULMONARY: Chest is clear to auscultation, no wheezing or crackles. ABDOMEN: Soft, distended with mild shifting dullness. No tenderness MUSCULOSKELETAL: No joint swelling or deformity. EXTREMITIES: No cyanosis, clubbing, patient does have significant anasarca pedal edema ascites NEUROLOGICAL: Gross neurological examination did not reveal any focal deficits. SKIN: No rashes. - Labs CBC & Chem 7: 12/19/18 08:15 12/19/18 08:15 Labs: Abnormal Lab Results - Last 24 Hours (Table) 12/19/18 12/19/18 12/19/18 Range/Units 08:15 08:15 08:15 RBC 2.89 L (4.30-5.90) m/uL Hgb 10.2 L (13.0-17.5) gm/dL Hct 32.7 L (39.0-53.0) % MCV 113.3 H (80.0-100.0) fL MCH 35.5 H (25.0-35.0) pg Plt Count 120 L (150-450) k/uL Lymphocytes # (Manual) 0.88 L (1.0-4.8) k/uL PT 18.8 H (9.0-12.0) sec INR 1.9 H (<1.2) Sodium 133 L (137-145) mmol/L Creatinine 0.62 L (0.66-1.25) mg/dL Calcium 8.0 L (8.4-10.2) mg/dL Total Bilirubin 8.3 H (0.2-1.3) mg/dL AST 105 H (17-59) U/L Alkaline Phosphatase 185 H (38-126) U/L Total Protein 6.1 L (6.3-8.2) g/dL Albumin 2.5 L (3.5-5.0) g/dL Assessment and Plan Plan: -Volume overload secondary to cirrhosis, continue with diuretic therapy as mentioned above repeat compressive metabolic profile tomorrow -Cholelithiasis, possibly of cholecystitis is no clinically, Gen. surgery following the patient and cholecystectomy is being held because of elevated INR and patient will receive 1 more dose of IV vitamin K -Acute alcoholic hepatitis with highly elevated bilirubin which is expected to improve with cessation of alcohol -Coagulopathy secondary to liver disease patient is receiving IV vitamin K at this time -Anasarca secondary to cirrhosis -Elevated TSH and T4: TSH need to be repeated in about a month palpitations are secondary to cirrhosis -Hyponatremia hypervolemic hyponatremia expected to improve with IV Lasix -Alcohol abuse: Counseling was provided -Portal hypertension for which patient is on propranolol which will be continued
[2018-12-19] MEDS ORDERED: HYDROmorphone 0.5 MG/0.5 ML SYRINGE IVP PRN (20:17)
[2018-12-19] MEDS ORDERED: ONDANSETRON 4 MG/2 ML VIAL IVP ONE (20:17)
[2018-12-19] MEDS ORDERED: DEXAMETHASONE SOD PHOSPHATE 10 MG/ML 1 ML VIAL IV ONE (20:17)
[2018-12-19] MEDS ORDERED: SCOPOLAMINE 1.5MG/72HR PATCH TRANSDERM ONE (20:17)
[2018-12-19 20:28] LABS: INR 1.8 (<1.2); Prothrombin Time 17.5 sec (9.0-12.0)
[2018-12-20] MEDS: LACTATED RINGERS 1,000 ML IV SCH ×2 (06:28→20:29)
[2018-12-20] MEDS: FUROSEMIDE 10 MG/ML 4 ML VIAL IV SCH ×2 (08:04→20:35)
[2018-12-20] MEDS: PROPRANOLOL 10 MG TAB PO SCH ×2 (08:10→20:36)
[2018-12-20] MEDS: SPIRONOLACTONE 25 MG TAB PO SCH (08:10)
[2018-12-20 08:14] LABS: HGB 10.6 gm/dL (13.0-17.5); MCH 36.7 pg (25.0-35.0); MCHC 32.2 g/dL (31.0-37.0); MCV 113.8 fL (80.0-100.0); Macrocytosis Marked; Mean Platelet Volume 7.6; Platelet Count 127 k/uL (150-450); WBC 6.4 k/uL (3.8-10.6)
[2018-12-20 08:19] LABS: INR 1.8 (<1.2); Prothrombin Time 18.2 sec (9.0-12.0)
[2018-12-20 08:32] LABS: ALT 32 U/L (21-72); AST 112 U/L (17-59); Albumin 2.6 g/dL (3.5-5.0); Alkaline Phosphatase 162 U/L (38-126); Anion Gap 8 mmol/L; Blood Urea Nitrogen 17 mg/dL (9-20); Calcium 8.3 mg/dL (8.4-10.2); Carbon Dioxide 27 mmol/L (22-30); Chloride 99 mmol/L (98-107); Glucose 99 mg/dL (74-99); Potassium 3.9 mmol/L (3.5-5.1); Sodium 134 mmol/L (137-145); Total Protein 6.4 g/dL (6.3-8.2)
[2018-12-20] MEDS ORDERED: PHYTONADIONE 10 MG in SODIUM CHLORIDE 0.9% 50 ML IVPB STA (08:46)
[2018-12-20 08:53] LABS: Lymphocytes # (M) 1.09 k/uL (1.0-4.8); Monocytes # (M) 0.32 k/uL (0-1.0); Neutrophils # (M) 4.99 k/uL (1.3-7.7); Neutrophils % (M) 78 %; Nucleated Red Blood Cells 0 /100 WBC (0-0); Poikilocytosis (M) Present; Target Cells Present; Total Cells Counted 100
--- NOTE | 2018-12-20 10:28 | P.PN ---
Subjective Progress Note Date: 12/20/18 CHIEF COMPLAINT: Cholelithiasis HISTORY OF PRESENT ILLNESS: Patient examined at the bedside. He denies abdominal pain. Denies nausea or vomiting. INR remains elevated at 1.8 this morning. PHYSICAL EXAM: VITAL SIGNS: Currently stable. GENERAL: Well-developed in no acute distress. HEENT: Jaundice. Extraocular movements grossly intact. Moist buccal mucosa. Head is atraumatic, normocephalic. Hears conversational speech. No nasal drainage. NECK: Supple without lymphadenopathy. CHEST: Non-labored respirations and equal bilateral excursions. CARDIOVASCULAR: Regular rate with regular rhythm. Palpable 2+ radial pulses. ABDOMEN: Ascites present. Soft. Nontender. MUSCULOSKELETAL: No clubbing, cyanosis. Edema to bilateral LE. NEUROLOGIC: No focal or lateralizing signs. Cranial nerves II through XII grossly intact. PSYCH: Appropriate affect. Alert and oriented to person, place and time. SKIN: Well perfused. Good skin turgor. Jaundice. ASSESSMENT: 1. Cholelithiasis 2. Alcoholic liver disease 3. Coagulopathy secondary to liver disease 4. Hyperbilirubinemia 5. Alcohol abuse PLAN: Surgery canceled today secondary to elevated INR. Additional 10mg Vitamin K and 2 FFP to be given this morning per Dr. Solano. Patient may have a low-fat diet. Will reschedule surgery tentatively for tomorrow pending correction of INR. Nothing by mouth after midnight. Recheck INR this evening and tomorrow morning. Nurse practitioner note has been reviewed by physician. Signing provider agrees with the documented findings, assessment, and plan of care. Objective - Vital Signs Vital signs: Vital Signs Temp 97.9 F 12/20/18 07:00 Pulse 85 12/20/18 07:00 Resp 12 12/20/18 07:00 BP 115/68 12/20/18 07:00 Pulse Ox 97 12/20/18 07:00 Intake & Output 12/19/18 12/20/18 12/20/18 18:59 06:59 18:59 Intake Total 436 780 Balance 436 780 Intake: Intake, IV Titration 50 Amount Phytonadione 10 mg In 50 Sodium Chloride 0.9% 50 ml @ 100 mls/hr IVPB ONCE STA Rx#:[id number] Oral 780 Blood Product 386 Ffp 24 Cp2d Unit 182 [id number] Ffp 24 Cp2d Unit 204 [id number] Other: # Voids 3 1 - Labs CBC & Chem 7: 12/20/18 07:34 12/20/18 07:34 Labs: Abnormal Lab Results - Last 24 Hours (Table) 12/19/18 12/20/18 12/20/18 Range/Units 19:51 07:34 07:34 RBC 2.90 L (4.30-5.90) m/uL Hgb 10.6 L (13.0-17.5) gm/dL Hct 33.0 L (39.0-53.0) % MCV 113.8 H (80.0-100.0) fL MCH 36.7 H (25.0-35.0) pg Plt Count 127 L (150-450) k/uL PT 17.5 H (9.0-12.0) sec INR 1.8 H (<1.2) Sodium 134 L (137-145) mmol/L Calcium 8.3 L (8.4-10.2) mg/dL Total Bilirubin 10.0 H (0.2-1.3) mg/dL AST 112 H (17-59) U/L Alkaline Phosphatase 162 H (38-126) U/L Albumin 2.6 L (3.5-5.0) g/dL 12/20/18 Range/Units 07:34 RBC (4.30-5.90) m/uL Hgb (13.0-17.5) gm/dL Hct (39.0-53.0) % MCV (80.0-100.0) fL MCH (25.0-35.0) pg Plt Count (150-450) k/uL PT 18.2 H (9.0-12.0) sec INR 1.8 H (<1.2) Sodium (137-145) mmol/L Calcium (8.4-10.2) mg/dL Total Bilirubin (0.2-1.3) mg/dL AST (17-59) U/L Alkaline Phosphatase (38-126) U/L Albumin (3.5-5.0) g/dL
[2018-12-20] MEDS: THIAMINE 100 MG TAB PO SCH ×2 (11:21→16:39)
--- NOTE | 2018-12-20 12:30 | P.PN ---
Subjective Progress Note Date: 12/20/18 Principal diagnosis: Elevated liver enzymes jaundice Cholecystectomy postponed. INR 1.8 stable. Total bilirubin increased 10. AST 112. ALT 32. AP 162. Platelet 127. White count 6.4. Hemoglobin 10.6. Objective - Vital Signs Vital signs: Vital Signs Temp 98.3 F 12/20/18 12:19 Pulse 83 12/20/18 12:19 Resp 14 12/20/18 12:19 BP 113/68 12/20/18 12:19 Pulse Ox 97 12/20/18 07:00 Intake & Output 12/19/18 12/20/18 12/20/18 18:59 06:59 18:59 Intake Total 436 780 652 Balance 436 780 652 Intake: Intake, IV Titration 50 Amount Phytonadione 10 mg In 50 Sodium Chloride 0.9% 50 ml @ 100 mls/hr IVPB ONCE STA Rx#:[id number] Oral 780 240 Blood Product 386 412 Ffp 24 Cp2d Unit 182 [id number] Ffp 24 Cp2d Unit 221 [id number] Ffp 24 Cp2d Unit 191 [id number] Ffp 24 Cp2d Unit 204 [id number] Other: # Voids 3 1 - Exam General appearance: The patient is alert, oriented, in no acute distress. Jaundice. HET: Head is normocephalic and atraumatic. Pupils are equal and reactive. Sclerae icterus. Oropharynx is clear without lesions. Neck: Supple without lymphadenopathy. Trachea midline. Heart: S1 S2. Regular rate and rhythm. Lungs: No crackles or wheezes are heard. Abdomen: Soft, nontender, mildly bloated with bowel sounds. No peritoneal signs. No palpable organomegaly or masses. Extremities: +2 bilateral lower extremity edema. Radial and pedal pulses are 2 /4 bilaterally. Neurological: No focal deficits. Strength and sensation are grossly intact. - Labs CBC & Chem 7: 12/20/18 07:34 12/20/18 07:34 Labs: Abnormal Lab Results - Last 24 Hours (Table) 12/19/18 12/20/18 12/20/18 Range/Units 19:51 07:34 07:34 RBC 2.90 L (4.30-5.90) m/uL Hgb 10.6 L (13.0-17.5) gm/dL Hct 33.0 L (39.0-53.0) % MCV 113.8 H (80.0-100.0) fL MCH 36.7 H (25.0-35.0) pg Plt Count 127 L (150-450) k/uL PT 17.5 H (9.0-12.0) sec INR 1.8 H (<1.2) Sodium 134 L (137-145) mmol/L Calcium 8.3 L (8.4-10.2) mg/dL Total Bilirubin 10.0 H (0.2-1.3) mg/dL AST 112 H (17-59) U/L Alkaline Phosphatase 162 H (38-126) U/L Albumin 2.6 L (3.5-5.0) g/dL 12/20/18 Range/Units 07:34 RBC (4.30-5.90) m/uL Hgb (13.0-17.5) gm/dL Hct (39.0-53.0) % MCV (80.0-100.0) fL MCH (25.0-35.0) pg Plt Count (150-450) k/uL PT 18.2 H (9.0-12.0) sec INR 1.8 H (<1.2) Sodium (137-145) mmol/L Calcium (8.4-10.2) mg/dL Total Bilirubin (0.2-1.3) mg/dL AST (17-59) U/L Alkaline Phosphatase (38-126) U/L Albumin (3.5-5.0) g/dL Assessment and Plan (1) Alcoholic liver disease Current Visit: Yes Status: Acute Code(s): K70.9 - ALCOHOLIC LIVER DISEASE, UNSPECIFIED SNOMED Code(s): 21218951 (2) Hyperbilirubinemia Current Visit: Yes Status: Acute Code(s): E80.6 - OTHER DISORDERS OF BILIRUBIN METABOLISM SNOMED Code(s): 45695033 (3) Coagulopathy Current Visit: Yes Status: Acute Code(s): D68.9 - COAGULATION DEFECT, UNSPECIFIED SNOMED Code(s): 12858665 (4) Thrombocytopenia Current Visit: Yes Status: Acute Code(s): D69.6 - THROMBOCYTOPENIA, UNSPECIFIED SNOMED Code(s): 261501583 Plan: 1. Supportive care. Daily monitoring of liver enzymes. Continue diuresis. Assessment and plan a care discussed with Dr. Edmond
--- NOTE | 2018-12-20 18:02 | P.PN ---
Subjective Progress Note Date: 12/20/18 Interval history: 33-year-old male was admitted for volume overload secondary to cirrhosis patient does have acute alcoholic hepatitis with highly elevated bilirubin. Patient will be diuresed and we'll increase the Lasix 40 mg IV along with Aldactone electrolytes will be closely monitored along with liver function. Patient still has significant pedal edema IV fluids will be discontinued patient blood pressure is borderline. Does have abdominal distention from ascites, no clinical evidence of hepatic encephalopathy at this time. 12/19/2018 Patient was scheduled for cholecystectomy, cholecystectomy to me is being held because of elevated INR of 1.9 patient does have cholelithiasis with mildly dilated common bile duct, gastroenterology as well as general surgery have following the patient. Patient will be given another dose of IV vitamin K 12/20/2018 T bili increased, 10. INR 1.8. Additional vitamin K with FFP administered, surgery rescheduled for tomorrow pending INR. Constitutional: Patient is complaining of tiredness weakness Cardio vascular: denied any chest pain, palpitations Gastrointestinal denied any nausea vomiting Pulmonary: Denied any shortness of breath cough Neurologic denied any new focal deficits All inpatient medications were reviewed and appropriate changes in these medications as dictated in the interval history and assessment and plan. Objective - Vital Signs Vital signs: Vital Signs Temp 98.5 F 12/20/18 15:00 Pulse 84 12/20/18 15:00 Resp 12 12/20/18 16:14 BP 108/67 12/20/18 15:00 Pulse Ox 97 12/20/18 15:00 Intake & Output 12/19/18 12/20/18 12/20/18 18:59 06:59 18:59 Intake Total 436 780 652 Balance 436 780 652 Intake: Intake, IV Titration 50 Amount Phytonadione 10 mg In 50 Sodium Chloride 0.9% 50 ml @ 100 mls/hr IVPB ONCE STA Rx#:[id number] Oral 780 240 Blood Product 386 412 Ffp 24 Cp2d Unit 182 [id number] Ffp 24 Cp2d Unit 221 [id number] Ffp 24 Cp2d Unit 191 [id number] Ffp 24 Cp2d Unit 204 [id number] Other: # Voids 3 2 - Exam GENERAL: The patient is alert and oriented x3, not in any acute distress. HEENT: Pupils are round and equally reacting to light. EOMI. jaundiced with with scleral icterus. No conjunctival pallor. Normocephalic, atraumatic. CARDIOVASCULAR: S1 and S2 present. No murmurs, rubs, or gallops. PULMONARY: Chest is clear to auscultation, no wheezing or crackles. ABDOMEN: Soft, distended with mild shifting dullness. No tenderness. No palpable organomegaly. MUSCULOSKELETAL: No joint swelling or deformity. EXTREMITIES: No cyanosis, clubbing, patient does have significant anasarca pedal edema ascites NEUROLOGICAL: Gross neurological examination did not reveal any focal deficits. SKIN: No rashes. Jaundice - Labs CBC & Chem 7: 12/20/18 07:34 12/20/18 07:34 Labs: Abnormal Lab Results - Last 24 Hours (Table) 12/19/18 12/20/18 12/20/18 Range/Units 19:51 07:34 07:34 RBC 2.90 L (4.30-5.90) m/uL Hgb 10.6 L (13.0-17.5) gm/dL Hct 33.0 L (39.0-53.0) % MCV 113.8 H (80.0-100.0) fL MCH 36.7 H (25.0-35.0) pg Plt Count 127 L (150-450) k/uL PT 17.5 H (9.0-12.0) sec INR 1.8 H (<1.2) Sodium 134 L (137-145) mmol/L Calcium 8.3 L (8.4-10.2) mg/dL Total Bilirubin 10.0 H (0.2-1.3) mg/dL AST 112 H (17-59) U/L Alkaline Phosphatase 162 H (38-126) U/L Albumin 2.6 L (3.5-5.0) g/dL 12/20/18 Range/Units 07:34 RBC (4.30-5.90) m/uL Hgb (13.0-17.5) gm/dL Hct (39.0-53.0) % MCV (80.0-100.0) fL MCH (25.0-35.0) pg Plt Count (150-450) k/uL PT 18.2 H (9.0-12.0) sec INR 1.8 H (<1.2) Sodium (137-145) mmol/L Calcium (8.4-10.2) mg/dL Total Bilirubin (0.2-1.3) mg/dL AST (17-59) U/L Alkaline Phosphatase (38-126) U/L Albumin (3.5-5.0) g/dL Assessment and Plan Assessment: -Volume overload secondary to cirrhosis -Cholelithiasis -Acute alcoholic hepatitis with hyperbilirubinemia -Coagulopathy secondary to liver disease -Thrombocytopenia -Anasarca secondary to cirrhosis -Elevated TSH and T4: TSH need to be repeated in about a month -Hyponatremia hypervolemic hyponatremia -Alcohol abuse: Counseling provided -Portal hypertension,on propranolol Plan: Continue current medication regime ,monitoring and symptomatic treatment. Maintain diuretic therapy, propranolol. Close monitoring of LFTs/bili with CMP ordered for a.m. Surgery rescheduled for tomorrow, pending INR. The impression and plan of care has been dictated as directed. : I performed a history and examination of this patient, discussed the same with the dictator. I agree with the dictator's note ,documented as a scribe. Any additional findings or plans will be noted.
[2018-12-20 19:44] LABS: INR 1.7 (<1.2)
[2018-12-20 21:51] VITALS: RESP 17
[2018-12-21] MEDS: FUROSEMIDE 10 MG/ML 4 ML VIAL IV SCH ×2 (07:14→14:33)
[2018-12-21] MEDS: SPIRONOLACTONE 25 MG TAB PO SCH (07:14)
[2018-12-21] MEDS: PROPRANOLOL 10 MG TAB PO SCH (07:14)
[2018-12-21 07:52] VITALS: BP 108/70; PULSE 62; TEMP 98.7
[2018-12-21 08:52] LABS: INR 1.7 (<1.2)
[2018-12-21 08:59] LABS: ALT 38 U/L (21-72); AST 122 U/L (17-59); Albumin 3.1 g/dL (3.5-5.0); Alkaline Phosphatase 187 U/L (38-126); Anion Gap 8 mmol/L; Blood Urea Nitrogen 18 mg/dL (9-20); Calcium 8.5 mg/dL (8.4-10.2); Carbon Dioxide 28 mmol/L (22-30); Chloride 97 mmol/L (98-107); Glucose 100 mg/dL (74-99); Potassium 4.1 mmol/L (3.5-5.1); Sodium 133 mmol/L (137-145); Total Bilirubin 9.9 mg/dL (0.2-1.3); Total Protein 7.2 g/dL (6.3-8.2)
[2018-12-21 09:07] LABS: Basophils # (A) 0.1 k/uL (0-0.2); Basophils % (A) 1 %; Eosinophils # (A) 0.2 k/uL (0-0.7); Eosinophils % (A) 2 %; HCT 33.5 % (39.0-53.0); HGB 11.3 gm/dL (13.0-17.5); Lymphocytes # (A) 1.4 k/uL (1.0-4.8); Lymphocytes % (A) 16 %; MCH 38.2 pg (25.0-35.0); MCHC 33.8 g/dL (31.0-37.0); Macrocytosis Marked; Mean Platelet Volume 7.8; Monocytes # (A) 0.9 k/uL (0-1.0); Monocytes % (A) 11 %; Neutrophils # (A) 5.7 k/uL (1.3-7.7); Neutrophils % (A) 66 %; Platelet Count 150 k/uL (150-450); RBC 2.97 m/uL (4.30-5.90); RDW 13.8 % (11.5-15.5); WBC 8.6 k/uL (3.8-10.6)
--- NOTE | 2018-12-21 10:16 | P.PN ---
Progress Note - Text Progress Note Date: 12/21/18 The patient remains coagulopathic. His INR today is 1.7. We will hold his laparoscopic cholecystectomy until his INR improves.
[2018-12-21] MEDS: THIAMINE 100 MG TAB PO SCH (11:13)
--- NOTE | 2018-12-21 11:41 | P.PN ---
Subjective Progress Note Date: 12/21/18 Principal diagnosis: Elevated liver enzymes jaundice Cholecystectomy postponed as outpatient. INR 1.7 stable. Total bilirubin increased 9.9. AST 122. ALT 30. AP 187. Platelet 150. Objective - Vital Signs Vital signs: Vital Signs Temp 98.7 F 12/21/18 07:19 Pulse 62 12/21/18 07:19 Resp 17 12/20/18 23:25 BP 108/70 12/21/18 07:19 Pulse Ox 93 L 12/21/18 07:19 Intake & Output 12/20/18 12/21/18 12/21/18 18:59 06:59 18:59 Intake Total 652 960 Balance 652 960 Intake: Oral 240 960 Blood Product 412 Ffp 24 Cp2d Unit 221 [id number] Ffp 24 Cp2d Unit 191 [id number] Other: # Voids 2 1 1 - Exam General appearance: The patient is alert, oriented, in no acute distress. Jaundice. HET: Head is normocephalic and atraumatic. Pupils are equal and reactive. Sclerae icterus. Oropharynx is clear without lesions. Neck: Supple without lymphadenopathy. Trachea midline. Heart: S1 S2. Regular rate and rhythm. Lungs: No crackles or wheezes are heard. Abdomen: Soft, nontender, mildly bloated with bowel sounds. No peritoneal signs. No palpable organomegaly or masses. Extremities: +2 bilateral lower extremity edema. Radial and pedal pulses are 2 /4 bilaterally. Neurological: No focal deficits. Strength and sensation are grossly intact. - Labs CBC & Chem 7: 12/21/18 07:58 12/21/18 07:58 Labs: Abnormal Lab Results - Last 24 Hours (Table) 12/20/18 12/21/18 12/21/18 Range/Units 19:11 07:58 07:58 RBC 2.97 L (4.30-5.90) m/uL Hgb 11.3 L (13.0-17.5) gm/dL Hct 33.5 L (39.0-53.0) % MCV 113.0 H (80.0-100.0) fL MCH 38.2 H (25.0-35.0) pg PT 17.0 H (9.0-12.0) sec INR 1.7 H (<1.2) Sodium 133 L (137-145) mmol/L Chloride 97 L (98-107) mmol/L Creatinine 0.63 L (0.66-1.25) mg/dL Glucose 100 H (74-99) mg/dL Total Bilirubin 9.9 H (0.2-1.3) mg/dL AST 122 H (17-59) U/L Alkaline Phosphatase 187 H (38-126) U/L Albumin 3.1 L (3.5-5.0) g/dL 12/21/18 Range/Units 07:58 RBC (4.30-5.90) m/uL Hgb (13.0-17.5) gm/dL Hct (39.0-53.0) % MCV (80.0-100.0) fL MCH (25.0-35.0) pg PT 17.0 H (9.0-12.0) sec INR 1.7 H (<1.2) Sodium (137-145) mmol/L Chloride (98-107) mmol/L Creatinine (0.66-1.25) mg/dL Glucose (74-99) mg/dL Total Bilirubin (0.2-1.3) mg/dL AST (17-59) U/L Alkaline Phosphatase (38-126) U/L Albumin (3.5-5.0) g/dL Assessment and Plan (1) Alcoholic liver disease Current Visit: Yes Status: Acute Code(s): K70.9 - ALCOHOLIC LIVER DISEASE, UNSPECIFIED SNOMED Code(s): 28625575 (2) Hyperbilirubinemia Current Visit: Yes Status: Acute Code(s): E80.6 - OTHER DISORDERS OF BILIRUBIN METABOLISM SNOMED Code(s): 77477625 (3) Coagulopathy Current Visit: Yes Status: Acute Code(s): D68.9 - COAGULATION DEFECT, UNSPECIFIED SNOMED Code(s): 50742818 (4) Thrombocytopenia Current Visit: Yes Status: Acute Code(s): D69.6 - THROMBOCYTOPENIA, UNSPECIFIED SNOMED Code(s): 287590168 Plan: 1. Agreeable for discharge. CMP/PT/INR 3-5 days. Return to office in 2-3 weeks. Alcohol abstinence advised. Recommend Lasix 20 mg daily. Aldactone 50 mg daily on discharge. Assessment and plan a care discussed with Dr. Edmond
[2018-12-21] MEDS ORDERED: DOCUSATE 100 MG CAP PO SCH (13:15)
[2018-12-21] MEDS ORDERED: SENNOSIDES-DOCUSATE SODIUM 1 EACH TAB PO SCH (13:15)
[2018-12-21 13:21] VITALS: BMI 28.5
[2018-12-21] MEDS ORDERED: LACTULOSE 20 GM/30 ML CUP PO ONE (14:37)
[2018-12-21] MEDS ORDERED: FUROSEMIDE 10 MG/ML 4 ML VIAL IV STA (14:37)
--- NOTE | 2018-12-24 07:21 | P.DS ---
Providers Date of admission: 12/15/18 20:47 Attending physician: Joe Brar MD Consults: 12/16/18 22:12 Consult Physician Routine Consulting Provider: Marielos Gómez Consult Reason/Comments: Hyperthyroidism Do you want consulting provider notified?: Yes, Notify in am 12/17/18 11:22 Consult Physician Routine Consulting Provider: River Solano Consult Reason/Comments: cholelithiasis Do you want consulting provider notified?: Yes Primary care physician: Stated None Hospital Course: Final Diagnoses: -Volume overload secondary to cirrhosis -Cholelithiasis -Acute alcoholic hepatitis with hyperbilirubinemia -Coagulopathy secondary to liver disease -Thrombocytopenia -Anasarca secondary to cirrhosis -Elevated TSH and T4: TSH need to be repeated in about a month -Hyponatremia hypervolemic hyponatremia -Alcohol abuse: Counseling provided -Portal hypertension,on propranolol Hospital course:33-year-old male was admitted for volume overload secondary to cirrhosis patient does have acute alcoholic hepatitis with highly elevated bilirubin. Patient will be diuresed and we'll increase the Lasix 40 mg IV along with Aldactone electrolytes will be closely monitored along with liver function. Patient still has significant pedal edema IV fluids will be discontinued patient blood pressure is borderline. Does have abdominal distention from ascites, no clinical evidence of hepatic encephalopathy at this time. 12/19/2018 Patient was scheduled for cholecystectomy, cholecystectomy to me is being held because of elevated INR of 1.9 patient does have cholelithiasis with mildly dilated common bile duct, gastroenterology as well as general surgery have following the patient. Patient will be given another dose of IV vitamin K 12/20/2018 T bili increased, 10. INR 1.8. Additional vitamin K with FFP administered, surgery rescheduled for tomorrow pending INR. 12/21/18 INR 1.7, cholecystectomy postponed-outpatient. T bili 9.9. Significant clinical improvement. Cleared by both GI and surgery for discharge. Patient is being discharged home in a stable condition with guarded prognosis. Patient advised to follow-up with both GI and surgery outpatient. - Exam GENERAL: The patient is alert and oriented x3, not in any acute distress. Jaundice CARDIOVASCULAR: S1 and S2 present. No murmurs, rubs, or gallops. PULMONARY: Chest is clear to auscultation, no wheezing or crackles. ABDOMEN: Soft, distended with mild shifting dullness. No tenderness. No palpable organomegaly NEUROLOGICAL: Gross neurological examination did not reveal any focal deficits. The impression and plan of care has been dictated as directed. : I performed a history and examination of this patient, discussed the same with the dictator. I agree with the dictator's note ,documented as a scribe. Any additional findings or plans will be noted. Time taken: 35 minutes Patient Condition at Discharge: Stable Plan - Discharge Summary Discharge Rx Participant: Yes New Discharge Prescriptions: New Propranolol [Inderal] 10 mg PO BID #60 tab Thiamine [Vitamin B-1] 100 mg PO DAILY #30 tab Furosemide [Lasix] 40 mg PO BID #60 tablet Spironolactone [Aldactone] 50 mg PO DAILY #30 tab Lactulose [Cephulac] 30 gm PO BID #900 ml Phytonadione (Vit K1) [Mephyton] 5 mg PO DAILY #30 tablet Hydrocortisone [Anusol-Hc] 1 applic RECTAL TID PRN #1 tube PRN Reason: Hemorrhoids Continue Cyanocobalamin [Vitamin B-12] 500 mcg PO HS Discharge Medication List Cyanocobalamin [Vitamin B-12] 500 mcg PO HS 12/15/18 [History] Furosemide [Lasix] 40 mg PO BID #60 tablet 12/21/18 [Rx] Hydrocortisone [Anusol-Hc] 1 applic RECTAL TID PRN #1 tube 12/21/18 [Rx] Lactulose [Cephulac] 30 gm PO BID #900 ml 12/21/18 [Rx] Phytonadione (Vit K1) [Mephyton] 5 mg PO DAILY #30 tablet 12/21/18 [Rx] Propranolol [Inderal] 10 mg PO BID #60 tab 12/21/18 [Rx] Spironolactone [Aldactone] 50 mg PO DAILY #30 tab 12/21/18 [Rx] Thiamine [Vitamin B-1] 100 mg PO DAILY #30 tab 12/21/18 [Rx] Follow up Appointment(s)/Referral(s): Giovany Araujo MD [REFERRING] - 12/28/18 1:10 pm Roland Edmond MD [STAFF PHYSICIAN] - 01/22/19 10:45 am River Solano MD [STAFF PHYSICIAN] - 12/27/18 2:10 pm Ambulatory/Diagnostic Orders: Comprehensive Metabolic Panel [LAB.AMB] Time Frame: 3 Days, Location: None Selected Patient Instructions/Handouts: Cirrhosis (DC), Jaundice (DC), Edema (DC) Activity/Diet/Wound Care/Special Instructions: compression stockings Discharge Disposition: HOME SELF-CARE
== END 2018-12-21 17:03 | disposition home or self-care (01) | DRG 444 ==
LOC: EC 17:22 → 4SSUR 20:47
PROVIDERS: ADMIT Internal Medicine; ATTEND Internal Medicine
DX: K80.20 Calculus of gallbladder without cholecystitis without obstruction (principal); K72.00 Acute and subacute hepatic failure without coma; D68.4 Acquired coagulation factor deficiency; E87.1 Hypo-osmolality and hyponatremia; F10.239 Alcohol dependence with withdrawal, unspecified; K76.6 Portal hypertension; D69.59 Other secondary thrombocytopenia; E87.70 Fluid overload, unspecified; K70.11 Alcoholic hepatitis with ascites; K70.31 Alcoholic cirrhosis of liver with ascites; K82.8 Other specified diseases of gallbladder; Z71.41 Alcohol abuse counseling and surveillance of alcoholic; Z53.09 Procedure and treatment not carried out because of other contraindication
CPT/HCPCS: 36415; 71045; 76705; 80053; 80074; 80076; 81001; 82103; 82105; 82140; 82150; 82390; 82728; 83516; 83540; 83550; 83690; 83735; 83880; 84165; 84439; 84443; 85025; 85610; 85730; 86376; 86850; 86900; 86901; 93005; 96360; 99285

== ENCOUNTER → 2019-01-04 | Outpatient (CLI) | payer OTHER ==
[2019-01-04 15:44] LABS: INR 1.7 (<1.2); Partial Thromboplastin Time 43.9 sec (22.0-30.0); Prothrombin Time 16.6 sec (9.0-12.0)
[2019-01-04 16:55] LABS: HCT 33.3 % (39.0-53.0); HGB 10.6 gm/dL (13.0-17.5); MCH 36.8 pg (25.0-35.0); Macrocytosis Marked; Mean Platelet Volume 7.7; Platelet Count 170 k/uL (150-450); RBC 2.89 m/uL (4.30-5.90); RDW 13.5 % (11.5-15.5); WBC 12.4 k/uL (3.8-10.6)
[2019-01-05 00:14] LABS: Hepatitis A Antibody IgM Non-Reactive (Non-Reactive); Hepatitis B Core IgM Non-Reactive (Non-Reactive)
[2019-01-05 00:43] LABS: Albumin 2.8 g/dL (3.80-4.90); Albumin/Globulin Ratio 0.76 (1.60-3.17); Anion Gap 8.8 mmol/L (4.00-12.00); Calcium 8.6 mg/dL (8.7-10.3); Carbon Dioxide 26.2 mmol/L (21.6-31.8); Globulin 3.7 g/dL (1.6-3.3); Potassium 4.5 mmol/L (3.5-5.5); Total Bilirubin 7.3 mg/dL (0.2-1.2); Total Protein 6.5 g/dL (6.2-8.2)
== END | disposition home or self-care (01) ==
LOC: LABWHC1 14:55
PROVIDERS: ATTEND Internal Medicine
DX: K76.9 Liver disease, unspecified (principal); R79.89 Other specified abnormal findings of blood chemistry
CPT/HCPCS: 36415; 80053; 80074; 82150; 83690; 85027; 85610; 85730

== ENCOUNTER → 2019-01-15 | Outpatient (CLI) | payer OTHER ==
[2019-01-15 16:53] LABS: INR 1.6 (<1.2); Prothrombin Time 16.3 sec (9.0-12.0)
== END | disposition home or self-care (01) ==
LOC: LABPAT 16:15
PROVIDERS: ATTEND Surgery
DX: Z01.812 Encounter for preprocedural laboratory examination (principal)
CPT/HCPCS: 85610

== ENCOUNTER → 2019-01-22 | Outpatient (CLI) | payer OTHER ==
[2019-01-22 14:28] LABS: INR 1.7 (<1.2); Prothrombin Time 16.7 sec (9.0-12.0)
[2019-01-22 14:46] LABS: HCT 29.7 % (39.0-53.0); MCH 36.2 pg (25.0-35.0); MCHC 33.5 g/dL (31.0-37.0); Macrocytosis Moderate; Mean Platelet Volume 7.6; Platelet Count 151 k/uL (150-450); RBC 2.75 m/uL (4.30-5.90); WBC 9.5 k/uL (3.8-10.6)
[2019-01-22 14:51] LABS: MCV 108.1 fL (80.0-100.0)
[2019-01-22 16:40] LABS: Eosinophils # (M) 0.19 k/uL (0-0.7); Lymphocytes # (M) 1.24 k/uL (1.0-4.8); Monocytes # (M) 0.48 k/uL (0-1.0); Neutrophils % (M) 80 %; Nucleated Red Blood Cells 0 /100 WBC (0-0); Total Cells Counted 100
[2019-01-22 19:49] LABS: Albumin 3.1 g/dL (3.80-4.90); Albumin/Globulin Ratio 0.84 (1.60-3.17); Anion Gap 10.8 mmol/L (4.00-12.00); Bilirubin,Unconjugated 3.6 mg/dL; Calcium 8.7 mg/dL (8.7-10.3); Carbon Dioxide 23.2 mmol/L (21.6-31.8); Globulin 3.7 g/dL (1.6-3.3); Potassium 4.7 mmol/L (3.5-5.5); Total Bilirubin 7.6 mg/dL (0.2-1.2); Total Protein 6.8 g/dL (6.2-8.2)
== END | disposition home or self-care (01) ==
LOC: LABWHC1 12:21
PROVIDERS: ATTEND Internal Medicine
DX: K74.60 Unspecified cirrhosis of liver (principal)
CPT/HCPCS: 36415; 80048; 80076; 85025; 85610